=== PATIENT | female | born 2000 | race Two or more races ===

== ENCOUNTER 2020-03-22 09:52 | Outpatient (REF) | payer OTHER, SELFPAY | END 2020-03-22 09:53 | disposition home or self-care (01) | LOC: HO.LAB 09:52 | PROVIDERS: Visit Provider Internal Medicine | DX: Z20.828 Contact with and (suspected) exposure to other viral communicable diseases (principal) | CPT/HCPCS: C9803; U0003 ==

== ENCOUNTER 2020-03-31 12:33 | Emergency (ER) | payer OTHER, SELFPAY ==
[2020-03-31 13:22] VITALS: BP 108/72; PULSE 78; RESP 18; TEMP 35.9; O2SAT 100; BMI 24.1
--- NOTE | 2020-03-31 13:32 | ED.URI ---
HPI - URI/Sore Throat General Chief Complaint: Upper Respiratory Symptoms Stated Complaint: COVID SYMPTOMS Time Seen by Provider: 03/31/20 13:27 Source: patient Mode of arrival: ambulatory Limitations: no limitations History of Present Illness HPI Narrative: Runny nose, sore throat, headache, cough since yest erday. no fevers, chills, shortness of breath or chest pain MD elicited complaint: cough, sore throat and rhinorrhea Onset (ago): day(s) Consistency: intermittent Severity: mild Description of mucous: clear Able to tolerate fluids by mouth: Yes Exacerbating factors: nothing Relieving factors: nothing Associated symptoms: headache, rhinorrhea, sore throat and cough Treatments prior to arrival: none Related Data Allergies Allergy/AdvReac Type Severity Reaction Status Date / Time shrimp Allergy Unknown SWELLING Unverified 01/17/20 17:00 Review of Systems Review of Systems: Yes all other systems are reviewed and are negative Constitutional: Constitutional: Reports no additional constitutional complaints, Denies body ache(s), Denies chills, Denies fever(s), Reports headache(s) and Denies weakness Eyes: Eyes: Reports no additional eye complaints and Denies change in vision ENT: Reports system reviewed and no additional complaints, except as documented, Denies dizziness, Reports headache(s), Denies nasal congestion, Reports nasal discharge, Denies neck pain and Reports sore throat Cardiovascular: Cardiovascular: Reports no additional cardiovascular complaints, Denies chest pain, Denies leg edema and Denies dyspnea Respiratory: Respiratory: Reports no additional respiratory complaints, Reports cough and Denies dyspnea Gastrointestinal: Gastrointestinal: Reports no additional gastrointestinal complaints, Denies abdominal pain, Denies diarrhea, Denies nausea and Denies vomiting Genitourinary: Genitourinary: Reports no additional female genitourinary complaints and Denies urinary incontinence Musculoskeletal: Musculoskeletal: Reports no additional musculoskeletal complaints, Denies back pain, Denies arthralgias, Denies joint swelling, Denies neck pain, Denies numbness and Denies tingling Integumentary/Breasts: Skin/Breast: Reports system reviewed and no additional complaints, except as docu and Denies rash Neurologic: Denies Abnormal speech present, Denies dizziness, Reports headache(s), Denies numbness, Denies tingling and Denies weakness FORMERLY [facility], 1928–1983 Past Medical History Attestation statement: The following information was validated with the patient. Source: old records reviewed and nursing notes reviewed Medical History No known health problems Social History Social History Advance Directives: No Advance Directives Information Provided: No Physical Exam Vital Signs: Vital Signs: Last Vital Signs Temp 96.6 F L 03/31/20 13:22 Pulse 78 03/31/20 13:22 Resp 18 03/31/20 13:22 BP 108/72 03/31/20 13:22 Pulse Ox 100 03/31/20 13:22 Body Mass Index 24.1 Const: General: cooperative, healthy appearing, comfortable and no acute distress Orientation/consciousness: patient oriented x3 Limitations: no limitations HENMT: Head: Yes normal to inspection Ears: hearing grossly normal bilaterally General nose exam: Normal external nose present Face and sinus: Yes normal facial exam Mouth: Normal oral and palatal mucosa present Throat: Yes posterior oropharynx normal Eyes: General: appearance normal, both eyes and all related structures Pupils: Equal, round and reactive pupils present Neck: Neck: Yes normal visual inspection Chest: Chest palpation & inspection: normal inspection of the chest Resp: Effort & Inspection: normal respiratory effort Auscultation: clear to auscultation bilaterally Cardio: Rate: regular rate Rhythm: regular rhythm Peripheral pulses: Peripheral pulses 2+ throughout GI: Inspection: Yes normal to inspection Palpation (GI): Soft to palpation and nontender Auscultation: normal bowel sounds Back/Spine/Pelvis: Thoracic/Lumbar Spine: thoracic and lumbar spine normal to inspection Skin: General skin exam: no rashes or lesions noted Neuro: General: patient oriented x3, no focal motor deficits and normal sensation to monofilament Cranial nerves: Yes Equal, round and reactive pupils present Cognition (Neuro): normal cognition Speech: No Abnormal speech present Gait exam (Neuro): Normal gait present Motor exam (neuro): 5/5 motor strength present throughout Extrem: General: Yes normal to inspection Course Course Course Narrative: 19 year old female previously healthy here with flu-like symptoms x2 days well appearing, stable vital signs. Exam is benign. COVID testing sent. Reviewed worrisome signs and symptoms of when to return to the emergency department. Comfortable discharge home. MDM - URI/Sore Throat Medical Records Attestation: I reviewed the patient's medical records. Lab Data Attestation: I reviewed the patient's lab results. Labs: Lab Results 03/31/20 Range/Units 13:47 Coronavirus (PCR) NEGATIVE (Negative) Influenza Type A (PCR) NEGATIVE (Negative) Influenza Type B (PCR) NEGATIVE (Negative) RSV RNA Qual (PCR) NEGATIVE (Negative) Discharge Plan Discharge Clinical Impression: Viral infection Patient Disposition: Home, Self-Care Instructions: Viral Syndrome (ED) Additional Instructions: We have tested you today for COVID 19. Test results take 1-2 days and we will call you with the results negative or positive. Take tylenol or motrin if able as needed for pain or fever. Stay well hydrated with fluids like water, gatorade and/or powerade. Wash hands at home. If living with others try to self isolate if possible. If unable wear a mask around others in your home and wash hands frequently. If COVID test is positive you will need to self isolate for a total of 14 days from when your symptoms started. You may return to work sooner if testing is negative and all symptoms resolved >72 hours. You should return to the emergency department for severe shortness of breath, chest pain or fever which does not respond to both tylenol and motrin at home. Referrals: [facility] [Primary Care Provider] - 2 days Interventions: ED Discharge Assessment Last Done: 03/31/20 14:07 Discharge Date/Time: 03/31/20 14:08
[2020-03-31 14:44] LABS: Influenza A PCR NEGATIVE (Negative); Influenza B PCR NEGATIVE (Negative); Resp Syncy Virus RNA Qual PCR NEGATIVE (Negative); SARS COV2 PCR INHOUSE NEGATIVE (Negative)
== END 2020-03-31 14:08 | disposition home or self-care (01) ==
PROVIDERS: Nurse Practitioner Family; Emergency Provider Internal Medicine
DX: B34.9 Viral infection, unspecified (principal); R05 Cough; R09.89 Other specified symptoms and signs involving the circulatory and respiratory systems; J02.9 Acute pharyngitis, unspecified; Z20.828 Contact with and (suspected) exposure to other viral communicable diseases
CPT/HCPCS: 0241U; 99283

== ENCOUNTER → 2020-10-27 08:12 | Outpatient (BNVA) | payer OTHER, SELFPAY | PROVIDERS: Visit Provider Advanced Practice Midwife | DX: N92.6 Irregular menstruation, unspecified (principal); R10.2 Pelvic and perineal pain | CPT/HCPCS: 81003; 81025; 99202 ==

== ENCOUNTER 2020-10-29 15:06 | Emergency (ER) | payer OTHER, SELFPAY ==
[2020-10-29 16:18] VITALS: BP 112/70; PULSE 78; RESP 16; TEMP 36.6; O2SAT 100; BMI 23.8
--- NOTE | 2020-10-29 21:45 | ED_ITS ---
HPI - Nausea/Vomiting/Diarrhea General Chief complaint: Nausea/Vomiting/Diarrhea Stated complaint: Nausea/6 wks preg Time Seen by Provider: 10/29/20 21:27 Source: patient Mode of arrival: ambulatory History of Present Illness HPI Narrative: This is a 19-year-old female without significant past medical history who is at 6 weeks and 5 days determined by LMP, and presenting with lower abdominal discomfort that has been ongoing for 1 week and was evaluated on Tuesday by her manufacturing production technician. She is now presenting with continued discomfort as well as mild nausea with an isolated episode of vomiting but otherwise denies any fever, chills, diarrhea, vaginal bleeding, urinary pain / burning /frequency. Related Data Home Medications Medication Instructions Recorded Confirmed vitamin with calcium 1 tab PO DAILY 10/27/20 no.72-iron 27 mg-folic acid 1 mg tablet Previous Rx's Medication Instructions Recorded doxylamine succinate 25 mg tablet 12.5 mg PO BEDTIME 30 Days #15 tab 10/29/20 pyridoxine (vitamin B6) 25 mg 25 mg PO TID #90 tab 10/29/20 tablet Allergies Allergy/AdvReac Type Severity Reaction Status Date / Time shrimp Allergy Unknown SWELLING Verified 10/27/20 08:30 Review of Systems Review of Systems: Pertinent positives and negatives as stated in HPI 10 point review of systems is otherwise negative. PMFSH Past Medical History Source: nursing notes reviewed Medical History No known health problems Social History Social History Alcohol intake: never Patient Tobacco Use Status: Never used Tobacco Advance Directives: No Advance Directives Information Provided: Yes Patient : Yes Physical Exam Vital Signs: Vital Signs: Last Vital Signs Temp 98.5 F 10/29/20 22:36 Pulse 55 10/29/20 22:36 Resp 18 10/29/20 22:36 BP 93/71 10/29/20 22:36 Pulse Ox 100 10/29/20 22:36 Body Mass Index 23.8 VITAL SIGNS: Reviewed. GENERAL: Well developed, well nourished, in no acute distress. HEAD: Normocephalic/atraumatic EYES: PERRLA, EOMI EARS: Ext canals without abnormality NOSE: Nares patent bilateral OROPHARYNX: no oral lesions noted, posterior pharynx clear NECK: Supple, no adenopathy LUNGS: Normal breath sounds. No adventitious sounds or accessory muscle use. SpO2<100> CARDIOVASCULAR: Regular rate and rhythm without noted murmurs ABDOMEN: Soft, non-tender, non-distended with bowel sounds. MUSCULOSKELETAL: No tenderness, deformities, or effusions noted on gross inspection. EXTREMITIES: No cyanosis, clubbing or edema. SKIN: Inspection of the skin reveals no rashes, ulcerations, jaundice, pallor, or petechiae. NEUROLOGIC: Alert and oriented x 4. Strength and sensation to light touch were grossly intact x 4. Course Course Course Narrative: This is a 19-year-old female with history and clinical presentation most consistent with related nausea and vomiting and doubt any infectious etiology, however will rule out UTI. Otherwise, will treat with antiemetic and p.o. challenge. On re-evaluation patient states that she is feeling much better and she will be discharged as there is low clinical suspicion for ectopic or intra-abdominal pathologies. On review of all results there is no evidence of UTI nor is there presence of hematuria. MDM - Nausea/Vomiting/Diarrhea Lab Data Labs: Lab Results 10/29/20 10/29/20 Range/Units 22:17 22:17 Urine Color YELLOW Urine Appearance CLEAR Urine pH 6.5 (5.0-8.0) Ur Specific [place] 1.010 (1.005-1.025) Urine Protein NEG (NEG-TRACE) MG/DL Urine Glucose (UA) NEG (NEG) MG/DL Urine Ketones 5 (NEG) MG/DL Urine Blood NEG (NEG) Urine Nitrite NEG (NEG) Ur Leukocyte Esterase NEG (NEG) Urine Test POSITIVE H (NEGATIVE) Discharge Plan Discharge Clinical Impression: Nausea/vomiting in Patient Disposition: Home, Self-Care Instructions: Nausea and Vomiting in (ED) Additional Instructions: 1. continue taking vitamins as well as the vitamin B6 as prescribed. 2. increase fluid hydration especially with water. 3. Please follow-up with your doctor within the next 2-3 days for re- evaluation. Please return to the ER should you develop any worsening of your symptoms, fevers, chills, diarrhea, vaginal bleeding. Prescriptions: No Action Unisom (doxylamine) 25 mg tablet 12.5 mg PO BEDTIME 30 Days Qty: 15 RF: 1 pyridoxine (vitamin B6) 25 mg tablet 25 mg PO TID Qty: 90 RF: 3 Vitamin Plus Low Iron 27 mg iron- 1 mg tablet 1 tab PO DAILY RF: 0 Referrals: Physician,None [Primary Care Provider] - 2 days
[2020-10-29 22:24] LABS: Appearance Urine CLEAR; Color Urine YELLOW; Glucose Urine UA NEG (NEG); Leukocyte Esterase Urine NEG (NEG); Nitrite Urine NEG (NEG); PH 6.5 (5.0-8.0); Urine Blood NEG (NEG); Urine Ketones 5 MG/DL (NEG); Urine Protein NEG (NEG-TRACE)
[2020-10-29 22:25] LABS: UPreg QC Valid YES; Urine Pregnancy POSITIVE (NEGATIVE)
[2020-10-29 22:36] VITALS: BP 93/71; PULSE 55; RESP 18; TEMP 36.9; O2SAT 100
== END 2020-10-29 23:55 | disposition home or self-care (01) ==
PROVIDERS: Emergency Provider Student in an Organized Health Care Education/Training Program
DX: O21.9 Vomiting of pregnancy, unspecified (principal); Z3A.01 Less than 8 weeks gestation of pregnancy
CPT/HCPCS: 81003; 81025; 96374; 99283; 99284

== ENCOUNTER 2020-10-30 03:10 | Emergency (ER) | payer OTHER, SELFPAY ==
--- NOTE | ~2020-10-30 | US_ITS ---
EXAMINATION: US OBSTETRICAL < 14 WEEKS CLINICAL INFORMATION: Severe cramping Last menstrual period: 09/12/2020. Gestational age by LMP: 6 weeks 6 days, GOLD 06/19/2021 COMPARISON: None. TECHNIQUE: Real-time ultrasound was performed transabdominally. FINDINGS: The uterus is anteverted in position. Within the endometrial cavity is a well formed gestation sac. A yolk sac is present with inner diameter measuring 2 mm, normal. The crown-rump length of 0.54 cm corresponds to a menstrual age of 6 weeks 3 days. This yields an estimated date of delivery of 06/22/2021. The heart beat is regular and normal rate measuring 116 beats per minute. The right ovary measures 4.1 x 2.6 x 2.3 cm, and the left ovary measures 3.6 x 2.2 x 1.9 cm. No adnexal abnormalities are identified. No free fluid in the pelvis. OTHER SIGNIFICANT FINDINGS: None US/US OB pelvic and transvaginal IMPRESSION: Single viable intrauterine estimated to be 6 weeks 3 days menstrual age. Estimated date of delivery is 06/22/2021.
[2020-10-30 03:26] VITALS: RESP 18; BMI 23.4
[2020-10-30] MEDS: Acetaminophen 325 MG TABLET 975 MG PO (03:40)
[2020-10-30 03:41] VITALS: BP 106/66; PULSE 89; RESP 18; TEMP 37; O2SAT 99
--- NOTE | 2020-10-30 04:05 | ED.GENADULT ---
HPI - General Adult General Chief complaint: General Medical Stated complaint: severe cramping (6 wks ) Time Seen by Provider: 10/30/20 04:05 Source: patient Mode of arrival: ambulatory History of Present Illness HPI narrative: 19-year-old female who presents with complaints of intermittent severe cramping, and re-presented after being evaluated earlier in the afternoon as well as being seen by her cytotechnologist/cytology supervisor a few days ago. Patient denies taking any Tylenol and denies vaginal bleeding. Related Data Home Medications Medication Instructions Recorded Confirmed vitamin with calcium 1 tab PO DAILY 10/27/20 no.72-iron 27 mg-folic acid 1 mg tablet Previous Rx's Medication Instructions Recorded doxylamine succinate 25 mg tablet 12.5 mg PO BEDTIME 30 Days #15 tab 10/29/20 pyridoxine (vitamin B6) 25 mg 25 mg PO TID #90 tab 10/29/20 tablet Allergies Allergy/AdvReac Type Severity Reaction Status Date / Time shrimp Allergy Unknown SWELLING Verified 10/27/20 08:30 Review of Systems Review of Systems: Pertinent positives and negatives as stated in HPI 10 point review of systems it was otherwise negative. [facility] Past Medical History Source: nursing notes reviewed Medical History No known health problems Social History Social History Alcohol intake: current Alcohol intake frequency: a few times a month Patient Tobacco Use Status: Never used Tobacco Use of substances other than those prescribed or required for medical reasons: No Advance Directives: No Advance Directives Information Provided: No Patient : Yes Physical Exam Vital Signs: Vital Signs: Last Vital Signs Temp 98.6 F 10/30/20 03:41 Pulse 89 10/30/20 03:41 Resp 18 10/30/20 03:41 BP 106/66 10/30/20 03:41 Pulse Ox 99 10/30/20 03:41 Body Mass Index 23.4 VITAL SIGNS: Reviewed. GENERAL: Well developed, well nourished, in no acute distress. HEAD: Normocephalic/atraumatic EYES: PERRLA, EOMI OROPHARYNX: no oral lesions noted, posterior pharynx clear NECK: Supple, no adenopathy LUNGS: Normal breath sounds. No adventitious sounds or accessory muscle use. SpO2<99> CARDIOVASCULAR: Regular rate and rhythm without noted murmurs ABDOMEN: Soft, non-tender on examination of all 4 quadrants, non-distended with bowel sounds. SKIN: Inspection of the skin reveals no rashes NEUROLOGIC: Alert and oriented x 4. Strength and sensation to light touch were grossly intact x 4. Course Course Course Narrative: This is a 19-year-old female with history and clinical presentation consistent with related symptoms, but will rule out ectopic. Review of ultrasound findings negative for ectopic. Patient given results and on re-evaluation she states it is feeling better. Discharge Plan Discharge Clinical Impression: Patient Disposition: Home, Self-Care Instructions: Abdominal Pain in (ED) Additional Instructions: Resume vitamins as well as the medication you have been prescribed for related nausea and vomiting. Follow-up with your primary care provider in the next 1-2 days for re-evaluation. Prescriptions: No Action Unisom (doxylamine) 25 mg tablet 12.5 mg PO BEDTIME 30 Days Qty: 15 RF: 1 pyridoxine (vitamin B6) 25 mg tablet 25 mg PO TID Qty: 90 RF: 3 Vitamin Plus Low Iron 27 mg iron- 1 mg tablet 1 tab PO DAILY RF: 0 Referrals: Eduarda Reyes MD [Primary Care Provider] - 2 days
== END 2020-10-30 05:21 | disposition home or self-care (01) ==
PROVIDERS: Emergency Provider Student in an Organized Health Care Education/Training Program; PCP Pediatrics
DX: O26.891 Other specified pregnancy related conditions, first trimester (principal); R10.9 Unspecified abdominal pain; Z3A.01 Less than 8 weeks gestation of pregnancy
CPT/HCPCS: 76801; 76817; 99284

== ENCOUNTER 2020-11-04 15:45 | Emergency (ER) | payer OTHER, SELFPAY | END 2020-11-04 18:03 | disposition left against medical advice (07) | LOC: HO.ED 18:02 | PROVIDERS: Emergency Provider Emergency Medicine | DX: R63.4 Abnormal weight loss (principal) ==

== ENCOUNTER 2020-11-12 12:57 | Outpatient (REF) | payer OTHER, SELFPAY ==
--- NOTE | ~2020-11-12 | US_ITS ---
EXAMINATION: US OBSTETRICAL ULTRASOUND CLINICAL INFORMATION: Irregular menstruation. On short dates. COMPARISON: None. LMP: 09/12/2020. Gestational age by maternal dates is 8 weeks 5 days. Estimated date of delivery by maternal dates is 06/19/2021. TECHNIQUE: Transabdominal first trimester OB ultrasound FINDINGS: There is a single intrauterine gestational sac with visible yolk sac, embryo/fetus, and cardiac activity. There is no significant subchorionic hemorrhage or hematoma. HR: 161 beats per minute. CRL (crown rump length): 1.7 cm (8 weeks 1 day +/- 4 days). GOLD (estimated date of delivery): 06/22/2021 +/- 4 days. MATERNAL ADNEXA: The right maternal ovary measures 2.4 x 1.8 x 1.8 cm. The left maternal ovary measures 2.4 x 1.6 x 1.7 cm. There is no significant maternal adnexal mass. No maternal pelvic ascites. US/US OB <= 14 weeks fetus IMPRESSION: 1. Single intrauterine gestation with ultrasound gestational age of 8 weeks 1 day +/- 4 days. 2. Estimated date of delivery is 06/23/2021 +/- 4 days. 3. No maternal adnexal mass or pelvic ascites.
== END 2020-11-12 12:58 | disposition home or self-care (01) ==
LOC: HO.US 12:57
PROVIDERS: Visit Provider Advanced Practice Midwife
DX: R10.2 Pelvic and perineal pain (principal); N92.6 Irregular menstruation, unspecified
CPT/HCPCS: 76801

== ENCOUNTER 2020-12-10 13:01 | Outpatient (REF) | payer OTHER, SELFPAY ==
[2020-12-11 04:19] LABS: CT PCR NOT DETECTED (Not Detect.); NG PCR NOT DETECTED (Not Detect.)
[2020-12-11 09:24] LABS: BV Int Neg Control Negative (Negative); BV Int Pos Control Positive (Positive)
== END 2020-12-10 13:02 | disposition home or self-care (01) ==
LOC: HO.LAB 13:01
PROVIDERS: Visit Provider Advanced Practice Midwife
DX: O99.891 Other specified diseases and conditions complicating pregnancy (principal); N89.8 Other specified noninflammatory disorders of vagina; Z3A.00 Weeks of gestation of pregnancy not specified
CPT/HCPCS: 81003; 87480; 87491; 87510; 87591; 87660; 99212

== ENCOUNTER 2020-12-12 10:35 | Outpatient (REF) | payer OTHER, SELFPAY ==
--- NOTE | ~2020-12-12 | US_ITS ---
EXAMINATION: OBSTETRICAL ULTRASOUND, FIRST TRIMESTER HISTORY: 19-year-old at 13.0 weeks of gestation NT screening COMPARISON: 11/12/2020 TECHNIQUE: Real time transabdominal imaging with color and M-mode Doppler. FINDINGS: A single, live IUP CRL of 65.9 mm c/w 13.0wks is noted. Heart Rate: 150 beats per minute. Normal yolk sac seen. NT was 1.7.mm. NB Present The embryo appears sonographically wnl for this GA. Both maternal ovaries are seen and appear normal. GESTATIONAL AGE: 1. Established GA: 13.0 wks 2. GA from [facility]: 13.0 wks ESTIMATED DATE OF DELIVERY: 1. Established GOLD: 06/19/2021 2. GOLD from [facility]: 06/19/2021 US/US OB 1T nuc measure IMPRESSION: 1. A single live IUP 2. Size equals dates 3. NT of 1.7 mm MFM Consultation: I reviewed the ultrasound findings along with significance of NT measurement. The NT of less than 3mm is generally reassuring. However, the sensitivity for T21 detection is only 60%. I reviewed the availability of serum aneuploidy screening which includes cell-free DNA and placental protein based tests. I discussed the sensitivity, false-positive rate, and other limitations associated with each test. I also reviewed the availability of invasive diagnostic tests that are associated small but definite risk of miscarriage. We also reviewed the differences between screening tests and diagnostic tests. After our discussion, she opted for the First trimester screening that is based on cell-free DNA or non-invasive testing (NIPT). A follow up at 18 weeks for survey has been scheduled. Thank you very much for this referral. Total time 30 minutes. The time spent was devoted to counseling the patient about the disease and diagnosis, coordinating care including reviewing her records, pertinent lab data and studies, as well as discussing diagnostic evaluation and workup, plan therapeutic interventions and future disposition of care. This includes any additional research needed to obtain further information in formulating the plan of care of this patient. This note was generated with a voice recognition program. Please excuse any errors which may have been overlooked during my review of this note. Sometimes these errors may affect the content or meaning of a given sentence.
== END 2020-12-12 10:36 | disposition home or self-care (01) ==
LOC: HO.US 10:35
PROVIDERS: Visit Provider Advanced Practice Midwife
DX: Z36.82 Encounter for antenatal screening for nuchal translucency (principal); Z3A.12 12 weeks gestation of pregnancy
CPT/HCPCS: 76813

== ENCOUNTER → 2020-12-29 13:36 | Outpatient (BNVA) | payer OTHER, SELFPAY | PROVIDERS: Visit Provider Advanced Practice Midwife | DX: Z34.02 Encounter for supervision of normal first pregnancy, second trimester (principal); Z3A.14 14 weeks gestation of pregnancy | CPT/HCPCS: 99212 ==

== ENCOUNTER 2021-01-09 14:00 | Outpatient (REF) | payer OTHER, SELFPAY ==
--- NOTE | ~2021-01-09 | US_ITS ---
EXAMINATION: US OBSTETRICAL CLINICAL INFORMATION: 20-year-old at 17 weeks of gestation Screening for anomalies COMPARISON: 12/12/2020 TECHNIQUE: Real-time transabdominal ultrasound was performed using C1-5 megahertz transducer. FINDINGS: A single, active, fetus is seen in vertex presentation. The placenta is anterior without previa, and the amniotic fluid volume is wnl. MEASUREMENTS: 1. Biparietal Diameter: 3.4 cm; 16.4 wks 2. Occipital Frontal Diameter: 4.6 cm 3. Head Circumference: 13.1 cm; 16.6 wks 4. Abdominal Circumference: 10.9 cm; 16.6 wks 5. Femur Length: 2.0 cm; 16.1 wks 6. Humerus Length: 2.1 cm; 16.3 wks 7. Tibia Length: 1.8 cm; 16.1 wks 8. Ulna Length: 2.0 cm; 17.0 wks 9. Lateral ventricle: 0.72 cm 10. Cerebellum: 1.61 cm; 17.2 wks 11. Cisterna Magna: 0.33 cm 12. Nuchal Fold: 2.4 mm 13. Heart Rate: 142 beats per minute Rt ovary: normal Lt ovary: normal Cervical length 3.6 cm on T/A. GESTATIONAL AGE: 1. Established GA: 17.0 wks 2. GA from [facility]: 16.5 wks ESTIMATED DATE OF DELIVERY: 1. Established GOLD: 06/19/2021 2. GOLD from [facility]: 06/21/2021 ANATOMY: The anatomic survey was the spleen limited due to early gestational age. The views of the three-vessel trachea, bilateral kidneys and spine were suboptimal. The visualized anatomy includes but not limited to: 1. Cranium: Normal 2. Intracranial anatomy: cavum septum pellucidi, lateral ventricles, choroid plexus, cerebellum, posterior fossa, third and fourth ventricles. 3. face: orbits, lip/palate, profile, nasal bone 4. Heart: Suboptimal 3 vessel trachea view. 5. Diaphragm: Normal 6. Abdominal wall: Normal 7. Cord Insertion: Normal 8. Spine: Suboptimal 9. Stomach: Normal size and shape 10. Right Kidney: Limited 11. Left Kidney: Limited 12. 3 vessel cord: Normal 13. Upper extremity: Open hands, fifth digit. 14. Lower extremity: Tibia, fibula, bilateral feet. 15. Bladder: Normal 16. Genitalia: Female, patient aware US/US OB /maternal detail IMPRESSION: 1. Single, living, intrauterine with appropriate biometry. 2. Limited anatomy due to early gestational age. However no abnormalities were seen in visualized anatomy. DISCUSSION: I reviewed today's ultrasound findings. We discussed the limitations of ultrasound in diagnosing aneuploidy and other congenital abnormalities. I reviewed the differences between screening test and diagnostic test. Amniocentesis was discussed and declined. She was informed that the baseline incidence of congenital abnormalities is approximately 3-5%. Not all these conditions are diagnosable in utero. RECOMMENDATIONS: 1. Follow-up in 3 weeks (scheduled) Thank you for allowing me to participate in her care. Total time 20 minutes. The time spent was devoted to counseling the patient about the disease and diagnosis, coordinating care including reviewing her records, pertinent lab data and studies, as well as discussing diagnostic evaluation and workup, plan therapeutic interventions and future disposition of care. This includes any additional research needed to obtain further information in formulating the plan of care of this patient. This note was generated with a voice recognition program. Please excuse any errors which may have been overlooked during my review of this note. Sometimes these errors may affect the content or meaning of a given sentence.
== END 2021-01-09 14:01 | disposition home or self-care (01) ==
LOC: HO.US 14:00
PROVIDERS: Visit Provider Advanced Practice Midwife
DX: Z34.92 Encounter for supervision of normal pregnancy, unspecified, second trimester (principal); Z36.3 Encounter for antenatal screening for malformations
CPT/HCPCS: 76811

== ENCOUNTER 2021-01-23 09:14 | Outpatient (REF) | payer OTHER, SELFPAY ==
[2021-01-23 16:16] LABS: CT PCR NOT DETECTED (Not Detect.); NG PCR NOT DETECTED (Not Detect.)
== END 2021-01-23 09:15 | disposition home or self-care (01) ==
LOC: HO.LAB 09:14
PROVIDERS: Visit Provider Advanced Practice Midwife
DX: Z34.92 Encounter for supervision of normal pregnancy, unspecified, second trimester (principal); Z3A.18 18 weeks gestation of pregnancy
CPT/HCPCS: 87491; 87591; 99212

== ENCOUNTER 2021-01-30 11:27 | Outpatient (REF) | payer OTHER, SELFPAY ==
--- NOTE | ~2021-01-30 | US_ITS ---
EXAMINATION: OBSTETRICAL ULTRASOUND, Follow up HISTORY: A 20-year-old at the 20.0 weeks of gestation Incomplete survey COMPARISON: 01/09/2021 TECHNIQUE: Real time transabdominal imaging with color and M-mode Doppler. PRESENTATION: Vertex PLACENTA LOCATION: Anterior without previa AMNIOTIC FLUID: Within normal limits MEASUREMENTS: 1. Biparietal Diameter: 4.7 cm; 20.2 wks 2. Head Circumference: 17.3 cm; 19.6 wks 3. Abdominal Circumference: 15.1 cm; 20.3 wks 4. Femur Length: 3.1 cm; 19.4 wks 5. Heart Rate: 144 beats per minute WEIGHT: Estimated weight is 320 grams (0 lbs 11 oz) -- 40 %. Normal views of lateral cerebral ventricle, profile, nose/lips, 4ch view, 3 vessel trachea, bilateral kidneys and spine. GESTATIONAL AGE: 1. Established GA: 20.0 wks 2. GA from [facility]: 20.1 wks ESTIMATED DATE OF DELIVERY: 1. Established GOLD: 06/19/2021 2. GOLD from [facility]: 06/18/2021 US/US OB follow up IMPRESSION: 1. A single fetus with appropriate interval growth. 2. Previously limited views of the anatomy were seen as listed above. No abnormalities were noted in visualized anatomy. 3. This completes the survey. I reviewed the limitations of ultrasound in diagnosing aneuploidy and other congenital abnormalities. Amniocentesis was again reviewed and she declined. She was informed that the baseline instance of congenital abnormalities and defects in the general population is approximately 3-5%. Not all these conditions are diagnosable in utero. RECOMMENDATIONS: 1. f/u PRN Thank you very much for this referral. This note was generated with a voice recognition program. Please excuse any errors which may have been overlooked during my review of this note. Sometimes these errors may affect the content or meaning of a given sentence.
== END 2021-01-30 11:28 | disposition home or self-care (01) ==
LOC: HO.US 11:27
PROVIDERS: Visit Provider Advanced Practice Midwife
DX: Z36.3 Encounter for antenatal screening for malformations (principal)
CPT/HCPCS: 76816

== ENCOUNTER → 2021-02-24 11:41 | Outpatient (BNVA) | payer OTHER, SELFPAY | PROVIDERS: Visit Provider Advanced Practice Midwife | DX: O99.891 Other specified diseases and conditions complicating pregnancy (principal); M54.50 Low back pain, unspecified; Z71.3 Dietary counseling and surveillance; Z3A.23 23 weeks gestation of pregnancy | CPT/HCPCS: 81003; 99212 ==

== ENCOUNTER 2021-03-12 09:08 | Outpatient (REF) | payer OTHER, SELFPAY ==
[2021-03-12 10:13] LABS: Hematocrit 34.7 % (37.0-47.0); Hemoglobin 11.4 g/dl (12.0-16.0); Mean Corpuscular HGB Conc 32.9 g/dl (31.0-35.0); Mean Corpuscular Hemoglobin 30.2 pg (27.0-33.0); Mean Platelet Volume 9.5 fL (9.4-12.3); Platelet Count 233 X10*3/uL (160-400); Red Blood Count 3.77 X10*6/uL (4.20-5.50); Red Cell Distribution Width 12.3 % (11.0-16.0); White Blood Count 12.6 X10*3/uL (4.8-10.8)
[2021-03-12 10:54] LABS: Amphetamine Screen Urine Not Detected (Not Detect); Barbiturates, Urine Not Detected (Not Detect); Benzodiazepines Screen Urine Not Detected (Not Detect); Cannabinoid Screen Urine Not Detected (Not Detect); Cocaine Screen Urine Not Detected (Not Detect); Fentanyl, urine Not Detected (Not Detect); Opiate Screen Urine Not Detected (Not Detect); Phencyclidine Screen Urine Not Detected (Not Detect)
[2021-03-12 11:57] LABS: Glucose 1 Hour PP 50gm Dose 124 mg/dL (60-140)
[2021-03-13 08:15] LABS: HIV AB/AG Nonreactive (Nonreactive); HIV Num 1 0.06 S/CO (0.00-0.99); Hepatitis B Surface Antigen Negative (Negative); ~HepC Num1 0.05 S/CO (0.00-0.79); ~Hepatitis C Antibody Nonreactive (Nonreactive)
[2021-03-13 08:38] LABS: Syphilis Screen Nonreactive (Nonreactive)
[2021-03-16 23:17] LABS: Rubella IgG Antibody 1.46 Index
== END 2021-03-12 09:09 | disposition home or self-care (01) ==
LOC: HO.LAB 09:08
PROVIDERS: Visit Provider Advanced Practice Midwife
DX: Z32.01 Encounter for pregnancy test, result positive (principal)
CPT/HCPCS: 80307; 85027; 86762; 86780; 86787; 86803; 86850; 86900; 86901; 87086; 87340; 87389

== ENCOUNTER → 2021-03-18 10:55 | Outpatient (BNVA) | payer OTHER, SELFPAY | PROVIDERS: Visit Provider Advanced Practice Midwife | DX: O36.5920 Maternal care for other known or suspected poor fetal growth, second trimester, not applicable or unspecified (principal); Z3A.26 26 weeks gestation of pregnancy | CPT/HCPCS: 99212 ==

== ENCOUNTER 2021-03-30 11:27 | Outpatient (REF) | payer OTHER, SELFPAY ==
--- NOTE | ~2021-03-30 | US_ITS ---
EXAMINATION: US OBSTETRICAL FOLLOWUP WITH BIOPHYSICAL PROFILE CLINICAL INFORMATION: Poor growth. COMPARISON: Ultrasound OB 01/30/2021 TECHNIQUE: Real-time transabdominal imaging with color and M-mode Doppler. POSITION: Cephalic. PLACENTA: Anterior grade 2. AMNIOTIC FLUID INDEX: Right upper quadrant SDP 5.6 cm. biometric measurements are as follows: Biparietal Diameter: 7.07 cm (28 weeks 3 days) Occipital Frontal Diameter: 8.84 cm (27 weeks and 1 day) Head Circumference: 26.12 cm (28 weeks and 3 days) Abdominal Circumference: 25.16 cm (29 weeks 3 days) Femur Length: 5.08 cm (27 weeks and 2 days) The ultrasound gestational age measures 28 weeks and 3 days. It corresponds to 28 weeks 3 days based on LMP of 09/12/2020. The standard deviation for the above measurements is +/- 3 weeks. On limited anatomy, there is visualization of kidneys, bladder, stomach, and a four-chamber heart which appears unremarkable. ESTIMATED WEIGHT: The EFW is 2 pounds and 12 oz/1254 g. This corresponds to 43rd percentile. HR: 153 bpm. There is good movement. US/US OB follow up IMPRESSION: 1. Single intrauterine gestation in cephalic position with anterior grade 2 placenta. 2. EFW: 1254 g corresponding to 43rd percentile. 3. JESSIKA: SDP 5.6 cm. 4. There is normal growth compared to last ultrasound exam 01/30/2021.
== END 2021-03-30 11:28 | disposition home or self-care (01) ==
LOC: HO.HMGCX 11:27
PROVIDERS: Visit Provider Advanced Practice Midwife
DX: O36.5920 Maternal care for other known or suspected poor fetal growth, second trimester, not applicable or unspecified (principal)
CPT/HCPCS: 76816

== ENCOUNTER 2021-04-03 | Outpatient (REF) | payer OTHER, SELFPAY | END 2021-04-03 00:01 | disposition home or self-care (01) | LOC: CF | PROVIDERS: Visit Provider Advanced Practice Midwife | DX: O99.891 Other specified diseases and conditions complicating pregnancy (principal); M54.9 Dorsalgia, unspecified; Z3A.28 28 weeks gestation of pregnancy; Z91.013 Allergy to seafood; Z67.40 Type O blood, Rh positive | CPT/HCPCS: 81003; 99212 ==

== ENCOUNTER → 2021-04-20 11:15 | Outpatient (BNVA) | payer OTHER, SELFPAY | PROVIDERS: PCP Advanced Practice Midwife; Visit Provider Advanced Practice Midwife | DX: Z34.03 Encounter for supervision of normal first pregnancy, third trimester (principal); Z3A.30 30 weeks gestation of pregnancy | CPT/HCPCS: 99212 ==

== ENCOUNTER → 2021-05-14 08:28 | Outpatient (BNVA) | payer OTHER, SELFPAY | PROVIDERS: PCP Advanced Practice Midwife; Visit Provider Advanced Practice Midwife | DX: Z34.03 Encounter for supervision of normal first pregnancy, third trimester (principal); Z23 Encounter for immunization; Z3A.34 34 weeks gestation of pregnancy | CPT/HCPCS: 90471; 90715; 99212 ==

== ENCOUNTER 2021-05-28 08:37 | Outpatient (REF) | payer OTHER, SELFPAY | END 2021-05-28 08:38 | disposition home or self-care (01) | LOC: HO.LAB 08:37 | PROVIDERS: PCP Advanced Practice Midwife; Visit Provider Obstetrics & Gynecology | DX: Z34.93 Encounter for supervision of normal pregnancy, unspecified, third trimester (principal); Z3A.36 36 weeks gestation of pregnancy | CPT/HCPCS: 87081; 87147; 99212 ==

== ENCOUNTER 2021-06-05 09:01 | Outpatient (REF) | payer OTHER, SELFPAY ==
[2021-06-05 15:39] LABS: CT PCR NOT DETECTED (Not Detect.); NG PCR NOT DETECTED (Not Detect.)
== END 2021-06-05 09:02 | disposition home or self-care (01) ==
LOC: HO.LAB 09:01
PROVIDERS: PCP Advanced Practice Midwife; Visit Provider Advanced Practice Midwife
DX: O36.5930 Maternal care for other known or suspected poor fetal growth, third trimester, not applicable or unspecified (principal); Z3A.37 37 weeks gestation of pregnancy
CPT/HCPCS: 87491; 87591; 99212

== ENCOUNTER 2021-06-12 10:55 | Outpatient (REF) | payer OTHER, SELFPAY ==
--- NOTE | ~2021-06-12 | US_ITS ---
EXAMINATION: OBSTETRICAL ULTRASOUND, Follow up HISTORY: 20-year-old at 39.0 weeks of gestation Suspected for growth COMPARISON: 03/30/2021 TECHNIQUE: Real time transabdominal imaging with color and M-mode Doppler. PRESENTATION: Vertex PLACENTA LOCATION: Anterior without previa AMNIOTIC FLUID: JESSIKA 10.2 cm MEASUREMENTS: 1. Biparietal Diameter: 8.4 cm; 34.0 wks 2. Head Circumference: 32.6 cm; 37.0 wks 3. Abdominal Circumference: 33.3 cm; 37.2 wks 4. Femur Length: 7.3 cm; 37.1 wks 5. Heart Rate: 139 beats per minute WEIGHT: EFW: 3022 grams (6 lbs 11 oz) -- 17 %. BIOPHYSICAL PROFILE: Motion: 2 Tone: 2 Breathin Amniotic Fluid: 2 Total score: 8/8 UA Doppler: S/D2.5 GESTATIONAL AGE: 1. Established GA: 39.0 wks 2. GA from A: 36.3 wks ESTIMATED DATE OF DELIVERY: 1. Established GOLD: 06/19/2021 2. GOLD from AUA: 07/07/2021 US/US OB velocimetry umbilical ar IMPRESSION: 1. A single active fetus is in vertex presentation 2. Size equals dates, EFW corresponds to 17th percentile 3. Reassuring biophysical profile with normal JESSIKA 4. Normal SD ratio in the umbilical artery I reviewed today's findings and the limitations of ultrasound and estimating weights. Her first the child's weight was approximately 6 pounds. Thank you very much for this referral. This note was generated with a voice recognition program. Please excuse any errors which may have been overlooked during my review of this note. Sometimes these errors may affect the content or meaning of a given sentence.
--- NOTE | ~2021-06-12 | US_ITS ---
EXAMINATION: OBSTETRICAL ULTRASOUND, Follow up HISTORY: 20-year-old at 39.0 weeks of gestation Suspected for growth COMPARISON: 03/30/2021 TECHNIQUE: Real time transabdominal imaging with color and M-mode Doppler. PRESENTATION: Vertex PLACENTA LOCATION: Anterior without previa AMNIOTIC FLUID: JESSIKA 10.2 cm MEASUREMENTS: 1. Biparietal Diameter: 8.4 cm; 34.0 wks 2. Head Circumference: 32.6 cm; 37.0 wks 3. Abdominal Circumference: 33.3 cm; 37.2 wks 4. Femur Length: 7.3 cm; 37.1 wks 5. Heart Rate: 139 beats per minute WEIGHT: EFW: 3022 grams (6 lbs 11 oz) -- 17 %. BIOPHYSICAL PROFILE: Motion: 2 Tone: 2 Breathin Amniotic Fluid: 2 Total score: 8/8 UA Doppler: S/D2.5 GESTATIONAL AGE: 1. Established GA: 39.0 wks 2. GA from AUA: 36.3 wks ESTIMATED DATE OF DELIVERY: 1. Established GOLD: 06/19/2021 2. GOLD from AUA: 07/07/2021 US/US OB follow up IMPRESSION: 1. A single active fetus is in vertex presentation 2. Size equals dates, EFW corresponds to 17th percentile 3. Reassuring biophysical profile with normal JESSIKA 4. Normal SD ratio in the umbilical artery I reviewed today's findings and the limitations of ultrasound and estimating weights. Her first the child's weight was approximately 6 pounds. Thank you very much for this referral. This note was generated with a voice recognition program. Please excuse any errors which may have been overlooked during my review of this note. Sometimes these errors may affect the content or meaning of a given sentence.
== END 2021-06-12 10:56 | disposition home or self-care (01) ==
LOC: HO.US 10:55
PROVIDERS: Visit Provider Advanced Practice Midwife
DX: O36.5990 Maternal care for other known or suspected poor fetal growth, unspecified trimester, not applicable or unspecified (principal); O26.893 Other specified pregnancy related conditions, third trimester; M54.30 Sciatica, unspecified side; N20.0 Calculus of kidney
CPT/HCPCS: 76816; 76820; 99212

== ENCOUNTER → 2021-08-20 12:59 | Outpatient (BNVA) | payer OTHER, SELFPAY | PROVIDERS: Visit Provider Advanced Practice Midwife | DX: Z39.2 Encounter for routine postpartum follow-up (principal); R20.0 Anesthesia of skin; M54.9 Dorsalgia, unspecified | CPT/HCPCS: 99212 ==

== ENCOUNTER → 2021-08-28 14:36 | Outpatient (BNVA) | payer OTHER, SELFPAY | PROVIDERS: Visit Provider Advanced Practice Midwife | DX: Z30.42 Encounter for surveillance of injectable contraceptive (principal) | CPT/HCPCS: 96372; 99211 ==

== ENCOUNTER 2022-01-21 09:59 | Outpatient (REF) | payer OTHER, SELFPAY ==
[2022-01-21 12:18] LABS: Hematocrit 42.3 % (37.0-47.0); Hemoglobin 13.7 g/dl (12.0-16.0); Mean Corpuscular HGB Conc 32.4 g/dl (31.0-35.0); Mean Corpuscular Hemoglobin 28.2 pg (27.0-33.0); Mean Platelet Volume 9.7 fL (9.4-12.3); Platelet Count 270 X10*3/uL (160-400); Red Blood Count 4.86 X10*6/uL (4.20-5.50); Red Cell Distribution Width 11.9 % (11.0-16.0); White Blood Count 6.4 X10*3/uL (4.8-10.8)
[2022-01-21 13:17] LABS: Thyroid Stimulating Hormone 0.96 uIU/mL (0.32-4.0)
== END 2022-01-21 10:00 | disposition home or self-care (01) ==
LOC: HO.LAB 09:59
PROVIDERS: PCP Internal Medicine; Visit Provider Advanced Practice Midwife
DX: N92.1 Excessive and frequent menstruation with irregular cycle (principal)
CPT/HCPCS: 36415; 84443; 85027; 99212

== ENCOUNTER 2022-01-25 10:52 | Outpatient (REF) | payer OTHER, SELFPAY ==
[2022-01-28 15:35] LABS: TS Negative Control Passed; TS Panel A 0; TS Panel B 0; TS Positive Control Passed; TSpotTB Negative (Negative)
== END 2022-01-25 10:53 | disposition home or self-care (01) ==
LOC: HO.LAB 10:52
PROVIDERS: Absent Provider Internal Medicine; PCP Internal Medicine; Visit Provider Advanced Practice Midwife
DX: Z30.42 Encounter for surveillance of injectable contraceptive (principal)
CPT/HCPCS: 36415; 86481; 96372; 99211

== ENCOUNTER 2022-02-05 13:59 | Outpatient (REF) | payer OTHER, SELFPAY ==
[2022-02-05 14:15] LABS: MANUAL DIFF FLAG NO
[2022-02-05 14:39] LABS: Basophils Percent Auto 0.4 % (0-2); Eosinophils Absolute Auto 0.2 X10*3/uL (0.0-0.4); Eosinophils Percent Auto 2.2 % (0-4); Hemoglobin 14.1 g/dl (12.0-16.0); Imm Gran Abs Auto 0.01 X10*3/uL (0.00-0.03); Imm Gran Pct Auto 0.1 % (0.0-0.4); Lymphocytes Percent Auto 37.6 % (20-40); Mean Corpuscular HGB Conc 32.8 g/dl (31.0-35.0); Mean Corpuscular Hemoglobin 28.8 pg (27.0-33.0); Mean Corpuscular Volume 87.9 fL (80.0-98.0); Mean Platelet Volume 9.5 fL (9.4-12.3); Monocytes Absolute Auto 0.5 X10*3/uL (0.1-1.2); Monocytes Percent Auto 6.7 % (2-11); Neutrophils Absolute Auto 4.3 x10*3/uL (2.0-8.3); Platelet Count 295 X10*3/uL (160-400); Red Blood Count 4.89 X10*6/uL (4.20-5.50); Red Cell Distribution Width 12.1 % (11.0-16.0); White Blood Count 8.1 X10*3/uL (4.8-10.8)
[2022-02-05 14:45] LABS: INTERNATIONAL NORM RATIO 1.5 (0.9-1.1); Prothrombin Time 16.9 SEC (10.0-13.1)
[2022-02-05 15:04] LABS: Alanine Aminotransferase 15 U/L (0-31); Albumin Level 4.6 g/dL (3.5-5.0); Alkaline Phosphatase 98 U/L (39-117); Anion Gap 14 (12-20); Aspartate Amino Transferase 18 U/L (5-31); Blood Urea Nitrogen 8 mg/dL (9-16); Calcium 9.3 mg/dL (8.4-10.2); Carbon Dioxide 22 mmol/L (22-29); Chloride 106 mmol/L (96-108); Estimated Glomerular Filt Rate > 60; Glucose Random 85 mg/dL (60-115); Sodium 138 mmol/L (135-145); Total Protein 7.5 g/dL (6.5-8.0)
[2022-02-05 15:10] LABS: HCG Quantitative < 2 mIU/mL
[2022-02-08 05:06] LABS: HIV AB/AG Nonreactive (Nonreactive)
== END 2022-02-05 14:00 | disposition home or self-care (01) ==
LOC: HO.LAB 13:59
PROVIDERS: PCP Internal Medicine; Visit Provider Internal Medicine
DX: Z00.00 Encounter for general adult medical examination without abnormal findings (principal); Z11.4 Encounter for screening for human immunodeficiency virus [HIV]; Z13.31 Encounter for screening for depression
CPT/HCPCS: 36415; 80053; 84702; 85025; 85610; 87389

== ENCOUNTER 2022-02-16 11:37 | Outpatient (REF) | payer OTHER, SELFPAY ==
[2022-02-16 12:54] LABS: Partial Thromboplastin Time 38.5 SEC (26.0-36.4)
== END 2022-02-16 11:38 | disposition home or self-care (01) ==
LOC: HO.LAB 11:37
PROVIDERS: PCP Internal Medicine; Visit Provider Internal Medicine
DX: Z01.818 Encounter for other preprocedural examination (principal)
CPT/HCPCS: 36415; 85730

== ENCOUNTER → 2022-04-19 14:55 | Outpatient (BNVA) | payer OTHER, SELFPAY | PROVIDERS: PCP Internal Medicine; Visit Provider Advanced Practice Midwife | DX: Z30.42 Encounter for surveillance of injectable contraceptive (principal) | CPT/HCPCS: 96372; 99211 ==

== ENCOUNTER 2022-07-05 14:43 | Outpatient (REF) | payer OTHER, SELFPAY ==
[2022-07-06 15:18] LABS: CT PCR NOT DETECTED (Not Detect.); NG PCR NOT DETECTED (Not Detect.)
[2022-07-07 09:37] LABS: BV Int Neg Control Negative (Negative); BV Int Pos Control Positive (Positive)
== END 2022-07-05 14:44 | disposition home or self-care (01) ==
LOC: HO.LNP 14:43
PROVIDERS: PCP Internal Medicine; Visit Provider Advanced Practice Midwife
DX: Z01.419 Encounter for gynecological examination (general) (routine) without abnormal findings (principal); R68.82 Decreased libido
CPT/HCPCS: 0353U; 87480; 87510; 87660; 88142

== ENCOUNTER → 2022-07-13 12:43 | Outpatient (BNVA) | payer OTHER, SELFPAY | PROVIDERS: PCP Internal Medicine; Visit Provider Advanced Practice Midwife | DX: Z30.42 Encounter for surveillance of injectable contraceptive (principal) | CPT/HCPCS: 96372; 99211 ==

== ENCOUNTER 2022-07-22 22:28 | Emergency (ER) | payer OTHER, SELFPAY ==
[2022-07-22 22:40] VITALS: BP 130/73; PULSE 104; RESP 16; TEMP 37.1; O2SAT 97; BMI 25.9
[2022-07-22 23:11] LABS: IDNOW Serial# 08D9AD1C; Strep A Nucleic Acid Negative (Negative)
--- NOTE | 2022-07-22 23:12 | ED.URI ---
HPI - URI/Sore Throat General Chief Complaint: Upper Respiratory Symptoms Stated Complaint: sore throat,ear pain Time Seen by Provider: 07/22/22 23:08 Source: patient Mode of arrival: ambulatory Limitations: no limitations History of Present Illness HPI Narrative: 21-year-old female presents with sore throat, cough, bilateral ear pain with nasal congestion. Patient has had negative COVID test. Also states that her daughter has similar symptoms. MD elicited complaint: cough, sore throat, nasal congestion and sinus pain (Bilateral ear pain) Onset (ago): day(s) (3) Consistency: constant and progressively worsening Severity: moderate Description of mucous: clear Able to tolerate fluids by mouth: Yes Exacerbating factors: swallowing and speaking Relieving factors: nothing Context: sick contacts Associated symptoms: chills, myalgias, rhinorrhea, nasal congestion, sore throat, cough and ear pain Treatments prior to arrival: acetaminophen and ibuprofen Related Data Previous Rx's Medication Instructions Recorded medroxyprogesterone 150 mg/mL 150 mg IM Q12W #1 mL 07/05/22 intramuscular suspension (Depo-Provera) amoxicillin 875 mg-potassium 1 tab PO Q12H 10 days #20 tabs 07/22/22 clavulanate 125 mg tablet Allergies Allergy/AdvReac Type Severity Reaction Status Date / Time shrimp Allergy Unknown SWELLING Verified 07/22/22 22:40 Review of Systems Review of Systems: Constitutional: No Fever, positive Chills, positive fatigue, positive Malaise ENT/Mouth: positive sore throat, positive runny nose, positive bilateral ear pain Eyes: No Discharge Cardiovascular: No Chest Pain, No SOB Respiratory: Positive Cough, No Sputum, No Wheezing, No Dyspnea Gastrointestinal: No Nausea, No Vomiting, No Diarrhea Musculoskeletal: positive Myalgia Skin: No rash Neuro: No Headache Yes all other systems are reviewed and are negative PMFSH Past Medical History Attestation statement: The following information was validated with the patient. Source: old records reviewed Medical History (Updated 07/22/22 @ 23:38 by Fina Segovia NP) No known health problems Renal calculus Surgical History History of cosmetic plastic surgery Family History Family History Mother Epilepsy Maternal Grandmother Diabetes HTN (hypertension) Social History Social History Household Members: Family Housing: House Alcohol intake: never Patient Tobacco Use Status: Never used Tobacco e-Cigarette/Vaping Use: Never Used Trauma History: none Special rachel needs: No Agree to transfusion: Yes Advance Directives: No Advance Directives Information Provided: No Current occupational status: employed 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 Oriented X3. Mild distress. Eyes: Pupils equal, round and reactive to light. EOMI. ENT: Pharynx erythematous of bilateral tonsillar swelling and exudates. Bilateral tympanic membranes erythematous, bulging, suppurative without perforation. Canals are intact. no mastoid tenderness noted. Neck: Normal inspection. Neck supple. Positive posterior and anterior cervical lymphadenopathy. No nuchal rigidity. No vertebral tenderness. CVS: Normal heart rate and rhythm. Pulses normal. Respiratory: No respiratory distress. Breath sounds normal. Abdomen: Soft and nontender. Skin: Skin warm and dry. Normal skin color. Normal skin turgor. Extremities: Gait well-balanced well coordinated. Neuro: No motor deficit. No sensory deficit. Cranial nerves 2-12 intact Course Course Course Narrative: 21-year-old female presents with 3 days of upper respiratory symptoms. Tested for COVID influenza RSV and strep while in the waiting room, all of which are negative. Patient's physical exam is consistent with strep pharyngitis with pharyngeal erythema with cobblestoning, bilateral tonsillar swelling with exudates. Anterior posterior cervical lymphadenopathy. Bilateral bulging erythematous tympanic membranes without perforation. Canals are intact. Plan of care is to treat for pharyngitis and otitis media with Augmentin. Will give dose of Tylenol to help alleviate symptoms of pain. Supportive measures discussed Tylenol, Motrin, plenty of fluids, and discarding her toothbrush after antibiotic treatment is completed. 23:12 patient verbalized understanding of and agrees to plan of care discharge home. Verbalized understanding of signs symptoms indicating need for emergent intervention. Medications Administered Discontinued Medications Generic Name Dose Route Start Last Admin Trade Name Bonnie PRN Reason Stop Dose Admin Amoxicillin/Clavulanate Potassium 875 mg 07/22/22 23:36 07/23/22 00:23 Amoxicillin/Potassium Clav 875 Mg Tablet PO 07/22/22 23:37 875 mg ONCE ONE Administration Ibuprofen 600 mg 07/22/22 23:36 07/23/22 00:23 Ibuprofen 600 Mg Tablet PO 07/22/22 23:37 600 mg ONCE ONE Administration Medical Decision Making Differential Diagnosis Differential Diagnoses: The differential diagnosis associated with the presentation includes COVID, influenza, RSV, pharyngitis, otitis media, otitis externa, viral syndrome Lab Data MDM Lab Attestation statement: I reviewed the patient's lab results. Labs: Lab Results 07/22/22 07/22/22 07/22/22 Range/Units 22:49 22:49 22:49 COVID-19 (CHARLI) Negative (Negative) COVID-19 Clin Com See Note Influenza Type A (SADIE) Negative (Negative) Influenza Type B (SADIE) Negative (Negative) Influenza A & B Note See Note S. pyogenes GrpA SADIE Negative (Negative) External Record Review External record reviewed: Outpatient record and Prior outpatient labs Prescription Management I considered prescription management with: Pain Medication and Antibiotic Tylenol, Motrin Discharge Plan Discharge Clinical Impression: Otitis media, Pharyngitis Patient Disposition: Home, Self-Care Instructions: Pharyngitis (ED), Ear Infection (ED) Additional Instructions: Your evaluated for sore throat and ear pain. Your physical exam is consistent with pharyngitis and otitis media. Please take Augmentin 875 mg twice a day for the next days. Finish the entire course of this medication. Alternate Tylenol 650 mg every 6 hours and Motrin 600 mg every 6 hours as needed for pain and fever management. Consider taking these medications 3 hours apart so you have pain and fever management every 3 hours. Write down what time you take these medications to prevent accidental overdose. Motrin is the same medication as Advil and ibuprofen. Tylenol is the same medication as acetaminophen. Thank you for choosing this emergency department for evaluation. Please follow-up with primary care physician as needed. Return to the emergency department for any new, concerning, or worsening symptoms. Prescriptions: New amoxicillin-pot clavulanate 875-125 mg tablet 1 tab PO Q12H 10 Days Qty: 20 0RF No Action medroxyprogesterone [Depo-Provera] 150 mg/mL suspension 150 mg IM Q12W Qty: 1 5RF Stand Alone Forms: Work/School Release Interventions: ED Discharge Assessment Last Done: 07/23/22 00:52 Discharge Date/Time: 07/23/22 00:55
[2022-07-22 23:15] LABS: COVID-19 Test Negative (Negative); IDNOW Serial# 9DB6401D; IDNOW Serial# BCCEAD1C; Influenza A Negative (Negative); Influenza B2 Negative (Negative)
[2022-07-23] MEDS: Amoxicillin/Potassium Clav 875 MG TABLET PO (00:23)
[2022-07-23] MEDS: Ibuprofen 600 MG TABLET PO (00:23)
== END 2022-07-23 00:55 | disposition home or self-care (01) ==
PROVIDERS: Emergency Provider Emergency Medicine; PCP Internal Medicine
DX: H66.93 Otitis media, unspecified, bilateral (principal); J02.9 Acute pharyngitis, unspecified; Z20.822 Contact with and (suspected) exposure to COVID-19
CPT/HCPCS: 87502; 87635; 87651; 99283

== ENCOUNTER 2022-08-08 02:35 | Emergency (ER) | payer OTHER, SELFPAY ==
[2022-08-08 02:41] VITALS: BP 122/79; PULSE 116; RESP 18; TEMP 37.7; O2SAT 96; BMI 25.9
[2022-08-08 03:02] LABS: IDNOW Serial# 6674DD1D; Strep A Nucleic Acid Negative (Negative)
[2022-08-08 03:30] LABS: Influenza A PCR NEGATIVE (Negative); Influenza B PCR NEGATIVE (Negative); Resp Syncy Virus RNA Qual PCR NEGATIVE (Negative); SARS COV2 PCR INHOUSE POSITIVE (Negative)
--- NOTE | 2022-08-08 04:08 | ED.GENADULT ---
HPI - General Adult General Chief complaint: General Medical Stated complaint: flu like symptoms Time Seen by Provider: 08/08/22 02:57 Source: patient Mode of arrival: ambulatory History of Present Illness HPI narrative: 21-year-old female who has positive sick contacts by her family and has felt flu-like symptoms since with persistent cough, body aches, sore throat and subjective fevers and chills. Related Data Previous Rx's Medication Instructions Recorded medroxyprogesterone 150 mg/mL 150 mg IM Q12W #1 mL 07/05/22 intramuscular suspension (Depo-Provera) amoxicillin 875 mg-potassium 1 tab PO Q12H 10 days #20 tabs 07/22/22 clavulanate 125 mg tablet Allergies Allergy/AdvReac Type Severity Reaction Status Date / Time shrimp Allergy Unknown SWELLING Verified 07/22/22 22:40 Review of Systems Review of Systems: Pertinent positives and negatives as stated in HPI [facility] Past Medical History Source: nursing notes reviewed Medical History No known health problems Renal calculus Surgical History History of cosmetic plastic surgery Family History Family History Mother Epilepsy Maternal Grandmother Diabetes HTN (hypertension) Social History Social History Household Members: Family Housing: House Alcohol intake: never Patient Tobacco Use Status: Never used Tobacco e-Cigarette/Vaping Use: Never Used Trauma History: none Special rachel needs: No Agree to transfusion: Yes Advance Directives: No Advance Directives Information Provided: Yes Current occupational status: employed 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 GENERAL: Well developed, well nourished, in no acute distress. HEAD: Normocephalic/atraumatic EYES: PERRLA, EOMI EARS: Ext canals without abnormality LUNGS: Normal breath sounds. No adventitious sounds or accessory muscle use. SpO2<96> CARDIOVASCULAR: Regular rate and rhythm without noted murmurs ABDOMEN: Soft, non-tender, non-distended with bowel sounds NEUROLOGIC: Alert and oriented x 4. Strength and sensation to light touch were grossly intact x 4. Medical Decision Making Medical Decision Making [facility] Narrative: 21-year-old female with history and clinical presentation after review of all investigations demonstrates that she has a viral syndrome and is noted be COVID-19 positive. Patient received combination of analgesics as well as cough suppressants and was otherwise discharged home to remain isolated for the remainder of her COVID infection. Differential Diagnosis Please see the discussion above Lab Data Please see the discussion above Labs: Lab Results 08/08/22 08/08/22 Range/Units 02:48 02:48 Influenza Type A (PCR) NEGATIVE (Negative) Influenza Type B (PCR) NEGATIVE (Negative) RSV RNA Qual (PCR) NEGATIVE (Negative) SARS-CoV-2 RNA (RT-PCR) POSITIVE A (Negative) S. pyogenes GrpA SADIE Negative (Negative) Discharge Plan Discharge Clinical Impression: Viral syndrome, Lab test positive for detection of COVID-19 virus Patient Disposition: Home, Self-Care Instructions: Viral Syndrome (ED), COVID-19 (Coronavirus Disease 2019) (ED) Additional Instructions: 1. You must remain isolated until Tuesday, 08/10. 2. Resume all other home medications as prescribed. 3. Please follow-up with your primary care provider on Tuesday morning via telemedicine appointment. Return to the ER for any worsening symptoms. Prescriptions: No Action amoxicillin-pot clavulanate 875-125 mg tablet 1 tab PO Q12H 10 Days Qty: 20 0RF medroxyprogesterone [Depo-Provera] 150 mg/mL suspension 150 mg IM Q12W Qty: 1 5RF Referrals: Sandy Marquez MD [Primary Care Provider] -
[2022-08-08] MEDS: Acetaminophen 325 MG TABLET 975 MG PO (04:43)
[2022-08-08] MEDS: Ibuprofen 400 MG TABLET PO (04:43)
[2022-08-08] MEDS: Benzonatate 100 MG CAPSULE 200 MG PO (04:43)
== END 2022-08-08 04:48 | disposition home or self-care (01) ==
PROVIDERS: Emergency Provider Student in an Organized Health Care Education/Training Program; PCP Internal Medicine
DX: U07.1 COVID-19 (principal); B34.9 Viral infection, unspecified; Z79.899 Other long term (current) drug therapy
CPT/HCPCS: 0241U; 87651; 99283

== ENCOUNTER → 2022-10-08 12:57 | Outpatient (BNVA) | payer OTHER, SELFPAY | PROVIDERS: PCP Internal Medicine; Visit Provider Advanced Practice Midwife | DX: Z30.42 Encounter for surveillance of injectable contraceptive (principal) | CPT/HCPCS: 96372; 99211 ==

== ENCOUNTER 2022-12-31 12:44 | Outpatient (AMB) | payer OTHER, SELFPAY ==
[2022-12-31 13:16] VITALS: BMI 27.0
--- NOTE | 2022-12-31 13:16 | AM.OFFVISNUR ---
Intake Vital Signs 12/31/22 13:16 Height 5 ft 1 in Weight 143 lb BMI 27.0 Intake Visit Reasons: DEPO Scale And Skip Car Operator Required: No Allergies shrimp Allergy (Unknown, Verified 07/22/22 22:40) SWELLING Is last menstrual period known: No Post menopausal: No Patient : No Nursing Note Clarisa is here for scheduled Depo provera injection. No c/o. Pt tolerated injection well. She will schedule her next injection in 12 weeks. Pt verbalizes understanding and agrees with plan. No further questions. Office Procedures Depo Questionnaire If YES to any of the following questions, please consult a provider. Date of last injection: 10/01/22 Date of last gynecology exam: 07/05/22 Menstrual pattern since last injection has been: Not Applicable Irregular bleeding?: No Breast lumps or other breast changes?: No Changes in weight or appetite?: No Depression or changes in mood?: No Abnormal hair growth or loss?: No Skin problems (rash, acne, discoloration)?: No Pain at the injection site?: No Headaches?: No Nervousness?: No Abdominal pain or cramping?: No Dizziness or nausea?: No Fatigue or weakness?: No Decrease in sexual drive?: No Chest pain or shortness of breath?: No Swelling in arms or legs?: No Form completed by?: Belinda Sanchez RN Office Meds Depo-Provera Performing Provider: Mya Frazier CNM Administered by: Belinda Sanchez on 12/31/22 13:19 Dose Route Admin Location Lot Number Expiration Date NDC Inspector Electromechanical 150 mg IM left deltoid [id number] 09/29/24 16564-480-04 [facility] Coding Level of Care Code Established Pt Est Pt Level 1 (73104) Patient Type Established History Problem Focused Medical Decision Making Straight Forward Diagnoses Time Spent (min) 10 Assessment & Plan Assessment & Plan Orders: Orders AMB Medroxyprogesterone Injection Patient Supplied Today Z30.42 - Encounter for surveillance of injectable contraceptive
== END 2022-12-31 13:15 | disposition home or self-care (01) ==
PROVIDERS: PCP Internal Medicine; Visit Provider Advanced Practice Midwife
DX: Z30.42 Encounter for surveillance of injectable contraceptive (principal)

== ENCOUNTER → 2022-12-31 12:44 | Outpatient (BNVA) | payer OTHER, SELFPAY | PROVIDERS: PCP Internal Medicine; Visit Provider Advanced Practice Midwife | DX: Z30.42 Encounter for surveillance of injectable contraceptive (principal) | CPT/HCPCS: 96372; 99211; J1050 ==

== ENCOUNTER 2023-03-22 12:59 | Outpatient (AMB) | payer OTHER, SELFPAY ==
[2023-03-22 13:15] VITALS: BMI 27.8
--- NOTE | 2023-03-22 13:15 | AM.OFFVISNUR ---
Intake Vital Signs 03/22/23 13:15 Height 5 ft 1 in Weight 66.678 kg BMI 27.8 Intake Visit Reasons: DEPO Allergies shrimp Allergy (Unknown, Verified 07/22/22 22:40) SWELLING Nursing Note Clarisa is here today for her Depo-Provera inj. She denies any problems. return in 12 wks. Office Procedures Depo Questionnaire If YES to any of the following questions, please consult a provider. Date of last injection: 12/31/22 Date of last gynecology exam: 07/05/22 Menstrual pattern since last injection has been: Not Applicable Irregular bleeding?: No Breast lumps or other breast changes?: No Changes in weight or appetite?: No Depression or changes in mood?: No Abnormal hair growth or loss?: No Skin problems (rash, acne, discoloration)?: No Pain at the injection site?: No Headaches?: No Nervousness?: No Abdominal pain or cramping?: No Dizziness or nausea?: No Fatigue or weakness?: No Decrease in sexual drive?: No Chest pain or shortness of breath?: No Swelling in arms or legs?: No Form completed by?: Chris Gupta LPN Office Meds Depo-Provera 150 mg/mL intramuscular syringe Performing Provider: Mya Frazier CNM [place] [facility] Administered by: Charissa Gupta LPN on 03/22/23 13:15 Dose Route Admin Location Dispensed Lot Number Expiration Date [facility] Audio Visual Manager 150 mg IM lt. Deltoid 1 mL [id number] 03/01/25 69302-087-87 [facility] Coding Level of Care Code Established Pt Est Pt Level 1 (47536) Patient Type Established History Problem Focused Exam Problem Focused Medical Decision Making Straight Forward Time Spent (min) 15 Assessment & Plan Assessment & Plan Orders: Orders AMB Medroxyprogesterone Injection Patient Supplied Today Z30.42 - Encounter for surveillance of injectable contraceptive
== END 2023-03-22 13:15 | disposition home or self-care (01) ==
PROVIDERS: PCP Internal Medicine; Visit Provider Advanced Practice Midwife
DX: Z30.42 Encounter for surveillance of injectable contraceptive (principal)

== ENCOUNTER → 2023-03-22 12:59 | Outpatient (BNVA) | payer OTHER, SELFPAY | PROVIDERS: PCP Internal Medicine; Visit Provider Advanced Practice Midwife | DX: Z30.42 Encounter for surveillance of injectable contraceptive (principal) | CPT/HCPCS: 96372; 99211; J1050 ==

== ENCOUNTER 2023-05-18 10:27 | Outpatient (AMB) | payer OTHER, SELFPAY ==
--- OUTSIDE RECORDS SUMMARY | 2023-05-18 10:29 | XMS_ITS | Continuity of Care Document ---
Author Name Unknown Organization [facility] ter Address [address] [place] [id number] Care Team Providers Care Traffic Rate Analyst Name Role Phone Angel BRAGG, Ashok Perez Primary Care Physician [phone] Encounter [facility] Date(s): 05/09/21 - 05/09/[address] [address]- Discharge Disposition: A-D/C Home Attending Physician: Arabella Tidwell MD Admitting Physician: Arabella Tidwell MD Referring Physician: Arabella Tidwell MD Allergies, Adverse Reactions, Alerts Substance Reaction Severity Status shellfish Active Immunizations Given and Recorded Vaccine Date Status Refusal Reason SARS-CoV-2 (COVID-19) mRNA BNT-162b2 vac 01/30/21 Recorded SARS-CoV-2 (COVID-19) mRNA BNT-162b2 vac 01/08/21 Recorded Medications doxylamine 25 mg oral tablet 1 tablet = 25 mg, By Mouth, Daily, 15 to 30 minutes before bed, # 60 tablet, 1 Refills, Maintenance, 11/04/20 20:48:00 EDT, Tablet, [facility]/pharmacy #[id number], Partial fill upon patient request if the prescription is for a schedule II opioid drug., 55.7, kg,... Start Date: 11/04/20 Status: Ordered ibuprofen 400 mg oral tablet 400 mg, 1, tablet, By Mouth, Every 6 hours, PRN, # 30 tablet, Refills 0, Tot. Refills 0, Maintenance, for pain, 03/11/16 19:07:34, Print Requisition Start Date: 03/11/16 Status: Ordered Macrobid macrocrystals-monohydrate 100 mg oral capsule 1 capsule = 100 mg, By Mouth, 2 times a day, for 7 days, # 14 capsule, 0 Refills, Acute 05/14/21 19:52:00 EST, 05/07/21 19:52:00 EST, Capsule, [facility]/pharmacy #[id number], Partial fill upon patient request ifthe prescription is for a schedule II opioid drug.,... Start Date: 05/07/21 Stop Date: 05/14/21 Status: Ordered MiraLax oral powder for reconstitution See Instructions, dissolve 2 capfuls of Miralax in 8 oz of water or juice, drink By Mouth Daily, # 527 Gm, 0 Refills, Maintenance, 03/11/16 19:07:49, REC Powder Start Date: 03/11/16 Status: Ordered PNV By Mouth, Daily, 0 Refills, Maintenance, 10/30/20 17:37:00 EDT, Partial fill upon patient request if the prescription is for a schedule II opioid drug. Start Date: 10/30/20 Status: Ordered Reglan 5 mg oral tablet 1 tablet = 5 mg, By Mouth, Every 6 hours, PRN Nausea & Vomiting, # 10 tablet, 0 Refills, Maintenance, 11/04/20 20:48:00 EDT, Tablet, [facility]/pharmacy #[id number], Partial fill upon patient request if the prescription is for a schedule II opioid drug., 55.7, kg,... Start Date: 11/04/20 Status: Ordered Tylenol 325 mg oral tablet 650 mg, 2, tablet, By Mouth, Every 4 hours, PRN, # 120 tablet, Refills 0, Tot. Refills 0, Maintenance, for pain, 03/11/16 19:08:09, Print Requisition Start Date: 03/11/16 Status: Ordered Vitamin B6 Daily, 0 Refills, Maintenance, 10/30/20 17:37:00 EDT, Partial fill upon patient request if the prescription is for a schedule II opioid drug. Start Date: 10/30/20 Status: Ordered Vital Signs Most recent to oldest [Reference Range]: 1 2 3 Height 155 cm (05/09/21 6:00 PM) Weight 71.1 kg (05/09/21 5:44 PM) Oxygen Saturation [94-100 %] 98 % (05/09/21 9:30 PM) 99 % (05/09/21 8:45 PM) 98 % (05/09/21 7:30 PM) Pulse Rate [55-90 bpm] 80 bpm (05/09/21 6:00 PM) Blood Pressure [90-138/55-84 mm Hg] 120/65mm Hg (05/09/21 6:00 PM) Blood pressure sites Arm, right (05/09/21 6:00 PM) Temperature Route Oral (05/09/21 6:00 PM) Dry Weight 71.1 kg (05/09/21 5:44 PM) Weight Obtained Via Standing scale (05/09/21 5:44 PM) Social History Social History Type Response Smoking Status Never (less than 100 in lifetime) entered on: 11/04/20 Sex
--- OUTSIDE RECORDS SUMMARY | 2023-05-18 10:29 | XMS_ITS | Continuity of Care Document ---
Author Name Unknown Organization [facility] ter Address [address] [place] [id number]- Care Team Providers Care Color Laboratory Technician Name Role Phone Not on Staff, PCP Primary Care Physician Unavail able [place] [facility] [place] [facility] [place](s[place] 06/17/21 - 06/17/[address] [id number] Discharge Disposition: A-D/C Home Attending Physician: Ronald Rivera MD Admitting Physician: Ronald Rivera MD Referring Physician: Ronald Rivera MD Allergies, Adverse Reactions, Alerts Substance Reaction [...] 1 Refills, Maintenance, 11/04/20 20:48:00 EDT, Tablet, [id number], Partial fill upon patient request if the prescription is for a schedule II opioid drug., 55.7, kg,... Start Date: 11/04/20 Status: Ordered ibuprofen 400 mg oral tablet 400 mg, 1, tablet, By Mouth, Every 6 hours, PRN, # 30 tablet, Refills 0, Tot. Refills 0, Maintenance, for pain, 03/11/16 19:07:34, Print Requisition Start Date: 03/11/16 Status: Ordered MiraLax oral powder for reconstitution [...] 0 Refills, Maintenance, 11/04/20 20:48:00 EDT, Tablet, [id number], Partial fill upon patient request [...] opioid drug. Start Date: 10/30/20 Status: Ordered Problem List Condition Effective Dates Status Health Status Inform ant Obese class I(Confirmed) Active Vital Signs Most recent to oldest [Reference Range]: 1 Oxygen Saturation [94-100 %] 98 % (06/17/21 3:44 PM) Blood Pressure [90-138/55-84 mm Hg] 117/ 62mm Hg (06/17/21 3:44 PM) Respiratory Rate [16-30 br/min] 18 br/mi n (06/17/21 3:44 PM) Temperature [96.8-100.4 DegF] 98.5 DegF (06/17/21 3:43 PM) Mode of Delivery (Oxygen) Room air (06/17/21 3:44 PM) Blood pressure sites Arm, right (06/17/21 3:44 PM) Dry Weight 78.2 kg (06/17/21 3:43 PM) Dry Weight Obtained Via Standing scale (06/17/21 3:43 PM) Social History Social History Type Response Smoking Status Never (less than 100 in lifetime) entered on: 11/04/20 Sex
--- OUTSIDE RECORDS SUMMARY | 2023-05-18 10:29 | XMS_ITS | Continuity of Care Document ---
Author Name Unknown Organization [facility] ter Address [address] [place] [id number]- Care Team Providers Care Research Executive Name Role Phone Angel BRAGG, Ashok Perez Primary Care Physician [phone] [place] [facility] [place] 11/04/[address] [id number] Discharge Disposition: A-D/C Home Attending Physician: Ronald Rivera MD Admitting Physician: Ronald Rivera MD Referring Physician: Ronald Rivera MD Allergies, Adverse Reactions, Alerts Substance Reaction Severity Status shellfish Active Medications doxylamine 25 mg oral tablet 1 tablet = 25 mg, By Mouth, Daily, 15 to 30 minutes before bed, # 60 tablet, 1 Refills, Maintenance, 11/04/20 20:48:00 EDT, Tablet, [id number], Partial fill upon patient request if the [...] 0 Refills, Maintenance, 11/04/20 20:48:00 EDT, Tablet, [id number], Partial fill upon patient request if the [...] Most recent to oldest [Reference Range]: 1 Weight 55.7 kg (11/04/20 6:15 PM) Oxygen Saturation [94-100 %] 100 % (11/04/20 6:15 PM) Pulse Rate [55-90 bpm] 80 bpm (11/04/20 6:15 PM) Blood Pressure [90-138/55-84 mm Hg] 120/ 66mm Hg (11/04/20 6:15 PM) Respiratory Rate [16-30 br/min] 16 br/mi n (11/04/20 6:15 PM) Temperature [96.8-100.4 DegF] 97.6 DegF (11/04/20 6:15 PM) Mode of Delivery (Oxygen) Room air (11/04/20 6:15 PM) Blood pressure sites Arm, left 1 (11/04/20 6:15 PM) Temperature Route Oral (11/04/20 6:15 PM) Dry Weight 55.7 kg (11/04/20 6:15 PM) Weight Obtained Via Standing scale (11/04/20 6:15 PM) Dry Weight Obtained Via Standing scale (11/04/20 6:15 PM) 1Result Comment: left arm measured at 26cm Social History Social History Type Response Smoking Status Never (less than 100 in lifetime) entered on: 11/04/20 Sex
--- OUTSIDE RECORDS SUMMARY | 2023-05-18 10:29 | XMS_ITS | Continuity of Care Document ---
Author Name Unknown Organization [facility] ter Address [address] [place] [id number]- Care Team Providers Care Automatic I Threading Machine Feeder Name Role Phone Not on Staff, PCP Primary Care Physician Unavail able Encounter [facility] Date(s): 06/17/21 - 06/20/[address] [id number] Discharge Disposition: A-D/C Home Attending Physician: Dawn Britton MD Admitting Physician: Dawn Britton MD Referring Physician: Dawn Britton MD Allergies, Adverse Reactions, Alerts Substance Reaction Severity Status shellfish Active Immunizations Given and Recorded Vaccine Date Status Refusal Reason SARS-CoV-2 (COVID-19) mRNA BNT-162b2 vac 01/30/21 Recorded SARS-CoV-2 (COVID-19) mRNA BNT-162b2 vac 01/08/21 Recorded Medications Acetaminophen Tablet 650 mg, Tablet, By Mouth, Every 4 hours, PRN for Pain , Mild, (1-3), may give 325mg per patient preference and re-dose with 325mg within 4 hours, if needed. Patient should only receive a total of 650mg of Acetaminophen every 4 hours., Routine, 06/18... Start Date: 06/18/21 Stop Date: 06/20/21 Status: Discontinued doxylamine 25 mg oral tablet 1 tablet = 25 mg, By Mouth, Daily, 15 to 30 minutes before bed, # 60 tablet, 1 Refills, Maintenance, 11/04/20 20:48:00 EDT, Tablet, [id number], Partial fill upon patient request if the [...] 0 Refills, Maintenance, 11/04/20 20:48:00 EDT, Tablet, [facility]/pharm[facility] #[id number], Partial fill upon patient request if [...] Range]: 1 2 3 Height 155 cm (06/20/21 7:45 AM) 155 cm (06/20/21 12:08 AM) 155 cm (06/19/21 6:15 PM) Weight 77.1 kg (06/18/21 12:19 AM) 77.5 kg (06/17/21 9:29 PM) Oxygen Saturation [94-100 %] 99 % (06/19/21 12:05 AM) 100 % (06/18/21 10:19 AM) 99 % (06/18/21 9:55 AM) Pulse Rate [55-90 bpm] 80 bpm (06/20/21 7:45 AM) 60 bpm (06/20/21 12:08 AM) 62 bpm (06/19/21 6:15 PM) Body Mass Index [18.5-24.99] 32.09 *>HHI* (06/18/21 12:19 AM) Blood Pressure [90-138/55-84 mm Hg] 116/70mm Hg (06/20/21 7:45 AM) 105/48mm Hg (06/20/21 12:08 AM) 108/65mm Hg (06/19/21 6:15 PM) Respiratory Rate [16-30 br/min] 18 br/min (06/20/21 8:53 AM) 18 br/min (06/20/21 7:45 AM) 20 br/min (06/20/21 2:50 AM) Temperature [96.8-100.4 DegF] 98.8 DegF (06/20/21 7:45 AM) 98.9 DegF (06/20/21 12:08 AM) 98.1 DegF (06/19/21 6:15 PM) Mode of Delivery (Oxygen) Room air (06/19/21 12:05 AM) Blood pressure sites Arm, right (06/19/21 6:15 PM) Arm, right (06/19/21 9:15 AM) Arm, left (06/18/21 2:49 PM) Temperature Route Oral (06/20/21 7:45 AM) Oral (06/20/21 12:08 AM) Oral (06/19/21 6:15 PM) Dry Weight 77.1 kg (06/18/21 12:19 AM) 77.5 kg (06/17/21 9:29 PM) Weight Obtained Via Standing scale (06/17/21 9:29 PM) Dry Weight Obtained Via Standing scale (06/17/21 9:29 PM) Social History Social History Type Response Smoking Status Never (less than 100 in lifetime) entered on: 11/04/20 Sex
--- OUTSIDE RECORDS SUMMARY | 2023-05-18 10:29 | XMS_ITS | Continuity of Care Document ---
Author Name Unknown Organization [facility] ter Address [address] [place] [address]- Care Team Providers Care Composition Mixer Name Role Phone Angel BRAGG, Ashok Perez Primary Care Physician [phone] Encounter [facility] [place] Date(s): 10/30/20 - 10/30/[address] [address]- Discharge Disposition: A-D/C Home Attending Physician: Arabella Tidwell MD Admitting Physician: Arabella Tidwell MD Referring Physician: Arabella Tidwell MD Allergies, Adverse Reactions, Alerts Substance Reaction Severity Status shellfish Active Medications ibuprofen 400 mg oral tablet 400 mg, [...] opioid drug. Start Date: 10/30/20 Status: Ordered Tylenol 325 mg oral tablet [...] recent to oldest [Reference Range]: 1 Weight 56.9 kg (10/30/20 3:17 PM) Oxygen Saturation [94-100 %] 100 % (10/30/20 3:17 PM) Pulse Rate [55-90 bpm] 84 bpm (10/30/20 3:17 PM) Blood Pressure [90-138/55-84 mm Hg] 105/ 60mm Hg (10/30/20 3:17 PM) Respiratory Rate [16-30 br/min] 18 br/mi n (10/30/20 3:17 PM) Temperature [96.8-100.4 DegF] 98.5 DegF (10/30/20 3:17 PM) Mode of Delivery (Oxygen) Room air (10/30/20 3:17 PM) Blood pressure sites Arm, right 1 (10/30/20 3:17 PM) Temperature Route Oral (10/30/20 3:17 PM) Dry Weight 56.9 kg (10/30/20 3:17 PM) 1Result Comment: right upper arm measured 26cm
--- OUTSIDE RECORDS SUMMARY | 2023-05-18 10:29 | XMS_ITS | Continuity of Care Document ---
Author Name Unknown Organization [facility] ter Address [address] [place] [address]- Care Team Providers Care Bleach Analyst Name Role Phone Ashok Ortiz MD Primary Care Physician [phone] [place] [facility] [place] - 02/[place]/[address] [id number] Discharge Disposition: A-D/C Home Attending Physician: Ashok Ferro MD Admitting Physician: Ashok Ferro MD Referring Physician: Ashok Ferro MD Allergies, Adverse Reactions, Alerts Substance Reaction [...] Refills, Maintenance, 11/04/20 20:48:00 EDT, Tablet, [id number], Partial fill upon patient request if the [...] 0 Refills, Maintenance, 11/04/20 20:48:00 EDT, Tablet, [facility]/pharmacy #[id number], Partial fill upon patient request if [...] opioid drug. Start Date: 10/30/20 Status: Ordered Procedures Procedure Date Related Diagnosis Body Site Status [place]oe tooth Completed Vital Signs Most recent to oldest [Reference Range]: 1 Height 155 cm (02/15/21 11:19 PM) Weight 60.2 kg (02/15/21 11:00 PM) Blood Pressure [90-138/55-84 mm Hg] 108/ 57mm Hg (02/15/21 11:19 PM) Respiratory Rate [16-30 br/min] 18 br/mi n (02/15/21 11:19 PM) Temperature [96.8-100.4 DegF] 98.6 DegF (02/15/21 11:00 PM) Blood pressure sites Arm, left (02/15/21 11:19 PM) Temperature Route Oral (02/15/21 11:00 PM) Dry Weight 60.2 kg (02/15/21 11:00 PM) Weight Obtained Via Standing scale (02/15/21 11:00 PM) Dry Weight Obtained Via Standing scale (02/15/21 11:00 PM) Social History Social History Type Response Smoking Status Never (less than 100 in lifetime) entered on: 11/04/20 Sex
[2023-05-18 10:31] VITALS: BP 110/68; BMI 28.0
--- NOTE | 2023-05-18 10:31 | MHC.OFFVIS ---
Intake Vital Signs 05/18/23 10:31 Height 5 ft 1 in Weight 148 lb BMI 28.0 BP 110/68 Intake Visit Reasons: Vaginal discharge Intake Note: has been having weird discharge. clear slimy and stringy, Burning when having intercourse Marine Fuel Dock Attendant Required: No Information Interpreted: non-clinical & clinical Senior Reliability Engineer: Senior Reliability Engineer Present (Emilee) Allergies shrimp Allergy (Unknown, Verified 05/18/23 10:34) SWELLING Medication List - Last Reconciled 05/18/23 by Mya Frazier CNM medroxyprogesterone (Depo-Provera) 150 mg IM Q12W Is last menstrual period known: No (no menses Depo) Post menopausal: No HPI Vaginal discharge HPI Details Patient is here could she was concerned about a during a whitish mucousy discharge. She just wants to get checked it did not have any odor so far she knew no itching She is on Depo-Provera and does not think she has been late with it but she had a similar discharge when she turned out to be with her daughter so she has a little nervous and she was wondering if she was feeling phantom kicks she would like a test to she has not really worried about STDs so declines blood work. She has been on the Depo for a while since her daughter was born a couple of years ago and before that she was on it from age 15 on she said it did take her about a year to get once she went off the Depo to get . She wonders if she should stay on it because people have told her that it has not good to not get a period and she is scared of other methods. 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 External Female Exam: normal external appearance and normal appearance of the urethra Speculum Exam - Vagina: normal appearance of the vagina and normal vaginal discharge Speculum Exam - Cervix: normal appearance of the cervix and Cervical os closed Results Reviewed Results Reviewed: test negative, Assessment & Plan Assessment & Plan (1) Screen for sexually transmitted diseases: Comment: accepts cultures, declines blood work for HIV etc. Code(s): Z11.3 - Encounter for screening for infections with a predominantly sexual mode of transmission (2) Depo-Provera contraceptive status: Comment: Last injection 03/22/2023. next due around 06/14/23 Code(s): Z30.42 - Encounter for surveillance of injectable contraceptive (3) control counseling: Code(s): Z30.09 - Encounter for other general counseling and advice on contraception (4) Cervical cancer screening: Comment: first pap done 07/05/22= neg Code(s): Z12.4 - Encounter for screening for malignant neoplasm of cervix Plan Offered a test reviewed the timing of getting the Depo-Provera every 12 weeks and how 1 could have different side effects if 1 was late and certainly increase the risk of . Reviewed all of the methods of control available currently after much discussion she thinks she will stay on the Depo for now we discussed in detail the Mirena IU S the ParaGard IU S Nexplanon Depo-Provera control pills control patches control rings. Side effects and how they work was discussed as well, as well as time to conceive from stopping which is a consideration for her she would like to have a baby now could she thinks it is good to have them close together but her partner is studying to be an motor electrician and wants to be well situated and has a couple of years more to go in his training. -I reviewed with the patient, all of the currently common used methods of control that are available. We reviewed how they work in the body, how they are taken, common side effects, uncommon side effects, precautions, and contraindications. -Discussed also factors that influence their effectiveness and use, and womens satisfaction with the method. -Discussed how each are used, and drawbacks of each method as well. -Methods covered included: condoms, control pills, control patches, control rings, Depo-Provera, Nexplanon, Mirena and Kyleena IUDs, and ParaGard IUDs. All of the above methods were covered in great detail including their side effect profiles and common experiences that women have and ways to mitigate against the negative experiences including attention to diet and exercise patient's with bleeding challenges that may occur her and efforts to time the initiation of the method to this start of the menstrual period. Orders: Orders CT NG by PCR Today Z11.3 - Encounter for screening for infections with a predominantly sexual mode of transmission Bacterial Vaginosis Panel Today Z11.3 - Encounter for screening for infections with a predominantly sexual mode of transmission Coding Level of Care Code Est Pt Level 3 (27667) Diagnoses Screen for sexually transmitted diseases Z11.3 Depo-Provera contraceptive status Z30.42 control counseling Z30.09 Cervical cancer screening Z12.4
== END 2023-05-18 12:13 | disposition home or self-care (01) ==
LOC: HO.HWSM 10:27
PROVIDERS: PCP Internal Medicine; Visit Provider Advanced Practice Midwife
DX: Z11.3 Encounter for screening for infections with a predominantly sexual mode of transmission (principal); Z30.42 Encounter for surveillance of injectable contraceptive; Z30.09 Encounter for other general counseling and advice on contraception; Z12.4 Encounter for screening for malignant neoplasm of cervix
CPT/HCPCS: 99213

== ENCOUNTER 2023-05-18 10:27 | Outpatient (REF) | payer OTHER, SELFPAY ==
[2023-05-19 04:52] LABS: CT PCR NOT DETECTED (Not Detect.); NG PCR NOT DETECTED (Not Detect.)
[2023-05-19 09:56] LABS: BV Int Neg Control Negative (Negative); BV Int Pos Control Positive (Positive)
== END 2023-05-18 10:28 | disposition home or self-care (01) ==
LOC: HO.LNP 10:27
PROVIDERS: PCP Internal Medicine; Visit Provider Advanced Practice Midwife
DX: N89.8 Other specified noninflammatory disorders of vagina (principal); Z11.3 Encounter for screening for infections with a predominantly sexual mode of transmission; Z12.4 Encounter for screening for malignant neoplasm of cervix
CPT/HCPCS: 0353U; 87480; 87510; 87660; 99212

== ENCOUNTER 2023-06-07 12:55 | Outpatient (AMB) | payer OTHER, SELFPAY ==
[2023-06-07 13:05] VITALS: BMI 28.5
--- NOTE | 2023-06-07 13:05 | AM.OFFVISNUR ---
Intake Vital Signs 06/07/23 13:05 Height 5 ft 1 in Weight 68.492 kg BMI 28.5 Intake Visit Reasons: Depo Allergies shrimp Allergy (Unknown, Verified 05/18/23 10:34) SWELLING Nursing Note ankur is here today for her scheduled Depo_Provera inj. She denies any problems with the Depo-provera. Pt is scheduled for 07/08/23 for her AG with Mya Hurt. Office Procedures Depo Questionnaire If YES to any of the following questions, please consult a provider. Date of last injection: 03/22/23 Date of last menstrual period: 06/07/23 Date of last gynecology exam: 07/05/22 Menstrual pattern since last injection has been: Light Irregular bleeding?: No Breast lumps or other breast changes?: No Changes in weight or appetite?: No Depression or changes in mood?: No Abnormal hair growth or loss?: No Skin problems (rash, acne, discoloration)?: No Pain at the injection site?: No Headaches?: No Nervousness?: No Abdominal pain or cramping?: No Dizziness or nausea?: No Fatigue or weakness?: No Decrease in sexual drive?: No Chest pain or shortness of breath?: No Swelling in arms or legs?: No Form completed by?: Chris Gupta LPN Office Meds Depo-Provera 150 mg/mL intramuscular syringe Performing Provider: Mya Frazier CNM Performing Location: [facility] [place] [facility] Administered by: Charissa Gupta LPN on 06/07/23 13:06 Dose Route Admin Location Dispensed Lot Number Expiration Date [facility] Body Care Manager 150 mg IM left deltoid 1 mL [id number] 07/30/25 50300-373-58 [facility] Coding Level of Care Code Established Pt Est Pt Level 1 (41601) Patient Type Established History Problem Focused Exam Problem Focused Medical Decision Making Straight Forward Time Spent (min) 15 Assessment & Plan Assessment & Plan Orders: Orders AMB Medroxyprogesterone Injection Patient Supplied Today Z30.42 - Encounter for surveillance of injectable contraceptive
== END 2023-06-07 13:04 | disposition home or self-care (01) ==
LOC: HO.HWS 12:55
PROVIDERS: PCP Internal Medicine; Visit Provider Advanced Practice Midwife
DX: Z30.42 Encounter for surveillance of injectable contraceptive (principal)

== ENCOUNTER → 2023-06-07 12:55 | Outpatient (BNVA) | payer OTHER, SELFPAY | PROVIDERS: PCP Internal Medicine; Visit Provider Advanced Practice Midwife | DX: Z30.42 Encounter for surveillance of injectable contraceptive (principal) | CPT/HCPCS: 96372; 99211; J1050 ==

== ENCOUNTER 2023-07-08 14:53 | Outpatient (AMB) | payer OTHER, SELFPAY ==
[2023-07-08 15:17] VITALS: BMI 28.5
--- NOTE | 2023-07-08 15:17 | MHC.OFFVIS ---
Intake Vital Signs 07/08/23 15:17 Height 5 ft 1 in Weight 151 lb BMI 28.5 Intake Visit Reasons: Annual Hotel Or Motel Manager Required: No Information Interpreted: non-clinical & clinical Director Clinical Data: Director Clinical Data Present (Emilee) Allergies shrimp Allergy (Unknown, Verified 07/08/23 15:20) SWELLING Medication List - Last Reconciled 07/08/23 by Mya Frazier CNM medroxyprogesterone (Depo-Provera) 150 mg IM Q12W Is last menstrual period known: No (no menses DEPO) Post menopausal: No HPI Annual HPI Details Patient is here scheduled for milk inspector annual exam she was seen only recently when she had a little bit of an increased discharge and everything turned out negative. She is on Depo-Provera and has been for year to and she is contemplating going off of it she does not want to use any other method of control except condoms she is afraid of getting and does not want to have another baby right now but she does not want control pills and does not think she would remember and does not want anything inside of her and she does not want the implant either. She thinks she could eat better and describes her diet as unhealthy could she eats a lot of fast food but when she describes what she is eating there is protein intake there could be some more vegetable in her intake. She thinks she could exercise more too. She had thought today was for her Depo but she actually came in June and had the Depo and her next Depo is due in August. 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 Female Reproductive History Menstrual Age of Menarche: 13 Duration of menses: 6-7 days control method: progesterone injection Total pregnancies: 1 Full term: 1 Number of Living Children: 1 Date of last pap smear: 07/06/22 (negative) Physical Exam Vital Signs: BMI result Body Mass Index 28.5 Const General: healthy appearing, comfortable, no acute distress, well developed and alert Nutritional Appearance: average body habitus Orientation/consciousness: patient oriented x3 Limitations: no limitations HEENT Head: Yes normocephalic Neck Neck: Yes normal visual inspection Thyroid: Thyroid normal Chest Chest palpation & inspection: normal inspection of the chest Breast/axilla inspection: normal inspection of the breasts and normal inspection of the axillae Breast/axilla palpation: normal palpation of the breasts and normal palpation of the axillae Resp Effort & Inspection: normal respiratory effort GI Inspection: Yes normal to inspection, No Abdominal wall edema and No distended Palpation (GI): Soft to palpation and nontender Other: Pelvic exam deferred as not due for Pap and patient had visit involving exam and screening for STIs just over a month ago everything was negative. External Female Exam: normal external appearance and normal appearance of the urethra Neuro General: patient oriented x3 Assessment & Plan Assessment & Plan (1) control counseling: Code(s): Z30.09 - Encounter for other general counseling and advice on contraception (2) Depo-Provera contraceptive status: Comment: Last injection 03/22/2023. next due around 06/14/23 Code(s): Z30.42 - Encounter for surveillance of injectable contraceptive (3) Cervical cancer screening: Comment: first pap done 07/05/22= neg Code(s): Z12.4 - Encounter for screening for malignant neoplasm of cervix (4) Well woman exam (no gynecological exam): Code(s): Z00.00 - Encounter for general adult medical examination without abnormal findings Plan -----Discussed in this visit the following: healthy balanced diet, regular and consistent exercise, getting recommended health screens, doing the best she can for her particular health concerns, kegel exercises, pap smear screening and followup recommendations, mammography screening and SBE, normal changes in cycles in her life stage--- . Reviewed that she will be due for next Pap in 2025 she did not need STI testing today because we did it just a few weeks ago and it was all negative. Reviewed options for control and decision making around making sure that she does not have an unplanned and if she wants her partner to use start using condoms consistently to start having these conversations now and she can decide herself if she wants the next Depo or not and it is up to her but just to be very careful that she would need to guard against and return to regular fertility and menses could happen quickly or be ever so slightly delayed. Refill on her Depo-Provera sent and reviewed nutritional and health goals. RTC 1 year and for next Depo if desired Medications: Refilled medroxyprogesterone (Depo-Provera) 150 mg IM Q12W 1 mL 5RF Coding Level of Care Code Est Pt Prev Care 18-39y(95[address]) Diagnoses control counseling Z30.09 Depo-Provera contraceptive status Z30.42 Cervical cancer screening Z12.4 Well woman exam (no gynecological exam) Z00.00
== END 2023-07-08 16:10 | disposition home or self-care (01) ==
LOC: HO.HWSM 14:54
PROVIDERS: PCP Internal Medicine; Visit Provider Advanced Practice Midwife
DX: Z01.419 Encounter for gynecological examination (general) (routine) without abnormal findings (principal)
CPT/HCPCS: 99395

== ENCOUNTER → 2023-07-08 14:53 | Outpatient (BNVA) | payer OTHER, SELFPAY | PROVIDERS: PCP Internal Medicine; Visit Provider Advanced Practice Midwife | DX: Z30.09 Encounter for other general counseling and advice on contraception (principal); Z30.42 Encounter for surveillance of injectable contraceptive; Z12.4 Encounter for screening for malignant neoplasm of cervix; Z00.00 Encounter for general adult medical examination without abnormal findings | CPT/HCPCS: 99395 ==

== ENCOUNTER 2023-11-16 08:13 | Outpatient (REF) | payer OTHER, SELFPAY ==
[2023-11-16 09:28] LABS: HCG Quantitative < 2 mIU/mL
== END 2023-11-16 08:14 | disposition home or self-care (01) ==
LOC: HO.LAB 08:13
PROVIDERS: PCP Internal Medicine; Visit Provider Advanced Practice Midwife
DX: N92.1 Excessive and frequent menstruation with irregular cycle (principal)
CPT/HCPCS: 36415; 84702

== ENCOUNTER 2024-06-19 12:34 | Emergency (ER) | payer OTHER, SELFPAY ==
[2024-06-19 12:43] VITALS: BP 112/63; PULSE 79; RESP 18; TEMP 36.9; O2SAT 96; BMI 26.6
--- NOTE | 2024-06-19 12:43 | ED.FEMALEGU ---
HPI - Female Genitourinary General Chief complaint: Urogenital-Female Stated complaint: UTI Time Seen by Provider: 06/19/24 16:51 Source: patient and RN notes reviewed Mode of arrival: ambulatory Limitations: no limitations History of Present Illness ED Provider: Brandi Delacruz PA-C HPI Narrative: This is a 23-year-old female who presents emergency department with complaints of dysuria, hematuria, urinary frequency and urgency. Patient also endorses some vaginal itching with intercourse. Denies any chance of STI. She denies any current changes in vaginal discharge. Last menses was last month, does report chance of . She has a history of urinary tract infections, symptoms feel similar. Denies any complaints or concerns at this time. MD elicited complaint: dysuria and UTI Onset (ago): day(s) Severity: moderate Consistency: constant Vaginal discharge: none Vaginal bleeding: none Urinary symptoms: Dysuria, Urgency, Frequency and Hematuria Exacerbating factors: urination Relieving factors: urination Associated symptoms: denies other symptoms Treatment prior to arrival: none Sexual activity: Yes Patient : No Possible : unsure if Related Data Previous Rx's ?Medication ?Instructions ?Recorded medroxyprogesterone 150 mg/mL 150 mg IM Q12W #1 mL 07/08/23 intramuscular suspension (Depo-Provera) cefuroxime axetil 250 mg tablet 250 mg PO BID 7 days #14 tabs 06/19/24 phenazopyridine 100 mg tablet 100 mg PO TID PRN pain 6 doses #6 06/19/24 (Pyridium) tabs Allergies Allergy/AdvReac Type Severity Reaction Status Date / Time shrimp Allergy Unknown SWELLING Verified 06/19/24 12:44 Review of Systems Review of Systems: Yes all other systems are reviewed and are negative Constitutional: Constitutional: Reports as per [facility] Past Medical History Medical History Renal calculus No known health problems Surgical History History of cosmetic plastic surgery Family History Family History Mother Epilepsy Maternal Grandmother Diabetes HTN (hypertension) Social History Social History (Reviewed 07/08/23 @ 15:21 by KEVYN Valdes Household Members: Family Housing: House Alcohol intake: never Patient Tobacco Use Status: Never used Tobacco e-Cigarette/Vaping Use: Never Used Trauma History: none Special rachel needs: No Agree to transfusion: Yes Do you have a plan to hurt others: No Plan Patient : No Current occupational status: employed 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 Physical Exam Vital Signs: Vital Signs: Last Vital Signs Temp 98.5 F 06/19/24 16:50 Pulse 77 06/19/24 16:50 Resp 20 06/19/24 16:50 BP 113/72 06/19/24 16:50 Pulse Ox 100 06/19/24 16:50 O2 Del Method Room Air 06/19/24 16:50 BMI result Body Mass Index 26.6 Const: General: cooperative, comfortable and no acute distress Orientation/consciousness: patient oriented x3 Limitations: no limitations HEENT: Head: Yes normal to inspection, Yes normocephalic and Yes atraumatic Ears: hearing grossly normal bilaterally General nose exam: Normal external nose present Face and sinus: Yes normal facial exam Mouth: Normal oral and palatal mucosa present, oropharynx normal and moist mucous membranes Throat: Yes posterior oropharynx normal Eyes: General: appearance normal, both eyes and all related structures Eyelids: Yes eyelids normal Conjunctivae: conjunctivae normal Sclerae: sclerae normal Pupils: Equal, round and reactive pupils present EOM: EOMs intact bilaterally Neck: Neck: Yes normal visual inspection, Yes full ROM and Yes no lymphadenopathy Lymphatic: no lymphadenopathy noted Chest: Chest palpation & inspection: normal inspection of the chest Resp: Effort & Inspection: normal respiratory effort and able to speak in complete sentences Auscultation: clear to auscultation bilaterally, no crackles, no rales, no rhonchi and no wheezes Cardio: Rate: regular rate Rhythm: regular rhythm Heart sounds: S1 normal heart sound present and S2 normal heart sound present GI: Other: Abdomen is soft, nontender, nondistended Inspection: Yes normal to inspection : Other: No CVA tenderness Skin: General skin exam: no rashes or lesions noted Trauma: no lacerations or abrasions Wounds: no wounds Neuro: General: patient oriented x3 and moves all extremities Cranial nerves: Yes Equal, round and reactive pupils present Extrem: General: Yes normal to inspection Right upper extremity: normal to inspection Left upper extremity: normal to inspection Right lower extremity: normal to inspection Left lower extremity: normal to inspection Course Course Course Narrative: This is an RME: Additional HPI, ROS, PE not included below will be deferred to primary provider. RME assessment and note performed by: Brandi Delacruz PA-C This is a [id number]-female who presents emergency department for evaluation of dysuria, urinary frequency, and hematuria. She does also endorse vaginal discharge. She is sexually active, menstrual period was last month. Does report possible chance of . Plan: Urinalysis, upreg, plus or minus pelvic examination Medical Decision Making Medical Decision Making MDM Narrative: This is a 23-year-old female who presents emergency department with complaints of urinary symptoms for the last 2 days. On arrival, vital signs within normal limits. She is speaking in full sentences under no acute distress. Patient with dysuria, hematuria, urinary frequency and urgency. Urine was collected revealing large blood, leuk esterases, rbc's, wbc's and trace bacteria consistent with UTI. She has no CVA tenderness. Abdomen is soft and nontender. She is not . Discussed findings with patient. Will discharge on course of cefuroxime. We will also discharge with Pyridium. Discussed strict return precautions. She understands and agrees with plan. Patient stable for discharge Patient does report some vaginal itching with intercourse, I offered that we can do a pelvic exam to cold-like swabs to rule out any vaginal infections however patient defers at this time and will follow-up with her OBGYN. I discussed with patient that we could be missing a illness however patient would like to be discharged with UTI antibiotics, and will follow-up outpatient. Given strict return precautions. Patient stable for discharge. Differential Diagnosis Differential Diagnoses: The differential diagnosis associated with the presentation includes Urinary tract infection, acute cystitis, STI-unlikely, pyelonephritis Lab Data [facility] Lab Attestation statement: I reviewed the patient's lab results. Urine consistent with UTI. Labs: Lab Results 06/19/24 Range/Units 13:18 Urine Color RED Urine Appearance Cloudy Urine pH 6.5 (5.0-9.0) Ur Specific [place] 1.020 (1.005-1.025) Urine Protein 100 (2+) H (Neg-Trace) mg/dL Urine Glucose (UA) Negative (Negative) mg/dL Urine Ketones Negative (Negative) mg/dL Urine Blood Large (3+) H (Negative) Urine Nitrite See Note (Negative) Ur Leukocyte Esterase Moderate (2+) H (Negative) Urine RBC >20 H (0-2) /HPF Urine WBC >50 H (0-5) /HPF Ur Squamous Epith Cells 0-2 (0-2) /HPF Urine Bacteria Trace (None Seen) Hyaline Casts 0-2 (0-2) /LPF Urine Test NEGATIVE (NEGATIVE) Discharge Plan Discharge Clinical Impression: UTI (urinary tract infection) Patient Disposition: Home, Self-Care Instructions: Urinary Tract Infection in Women (ED) Additional Instructions: You were seen in the emergency department due to urinary symptoms. Your urine is consistent with a urinary tract infection. Please drink prescribed antibiotic as directed. Finish the entire course even if your symptoms improve. Your urine will be sent out for further testing, we will call you if we need to change your antibiotic. Pyridium is an anesthetic for your bladder, this helps with the symptoms. Take as prescribed. Please be advised that this can cause your urine to be bright orange. Drink plenty of fluids get plenty of rest. If any new or worsening symptoms occur including but not limited to fevers, severe abdominal pain, chest pain, shortness of breath, please seek emergent care. Prescriptions: New cefuroxime axetil 250 mg tablet 250 mg PO BID 7 Days Qty: 14 0RF phenazopyridine [Pyridium] 100 mg tablet 100 mg PO TID PRN (Reason: pain) Qty: 6 0RF No Action medroxyprogesterone [Depo-Provera] 150 mg/mL suspension 150 mg IM Q12W Qty: 1 5RF Print Language: [place]
[2024-06-19 13:29] LABS: UPreg QC Valid YES; Urine Pregnancy NEGATIVE (NEGATIVE)
[2024-06-19 13:31] LABS: Appearance Urine Cloudy; Color Urine RED; Glucose Urine UA Negative (Negative); Leukocyte Esterase Urine Moderate (2+) (Negative); PH 6.5 (5.0-9.0); UMIC TRIGGER UACC YES; Urine Blood Large (3+) (Negative); Urine Ketones Negative (Negative); Urine Protein 100 (2+) mg/dL (Neg-Trace)
[2024-06-19 13:41] LABS: Bacteria Urine Trace (None Seen); Hyaline Casts Urine 0-2 /LPF (0-2); RBC Urine >20 /HPF (0-2); Squamous Epithelial Cell Urine 0-2 /HPF (0-2); UACC Culture Trigger YES; WBC Urine >50 /HPF (0-5)
[2024-06-19 16:50] VITALS: BP 113/72; PULSE 77; RESP 20; TEMP 36.9; O2SAT 100
[2024-06-19 17:03] VITALS: BP 113/72; PULSE 77; RESP 20; TEMP 36.9; O2SAT 100
== END 2024-06-19 17:06 | disposition home or self-care (01) ==
LOC: HO.ED 17:04
PROVIDERS: Physician Assistant Medical; Emergency Provider Emergency Medicine; PCP Internal Medicine
DX: N39.0 Urinary tract infection, site not specified (principal)
CPT/HCPCS: 81001; 81025; 87086; 99282; 99283

== ENCOUNTER 2024-06-26 14:14 | Outpatient (REF) | payer OTHER, SELFPAY ==
[2024-06-27 13:50] LABS: Bacterial Vaginosis PCR NEGATIVE (Negative); Candida Group PCR DETECTED (Not Detect); Candida glab krusei PCR NOT DETECTED (Not Detect); Trichomonas vaginalis PCR NOT DETECTED (Not Detect)
== END 2024-06-26 14:15 | disposition home or self-care (01) ==
LOC: HO.LAB 14:14
PROVIDERS: PCP Internal Medicine; Visit Provider Advanced Practice Midwife
DX: N90.89 Other specified noninflammatory disorders of vulva and perineum (principal); N89.8 Other specified noninflammatory disorders of vagina
CPT/HCPCS: 81515; 99212; 99459

== ENCOUNTER 2024-06-26 14:14 | Outpatient (AMB) | payer OTHER, SELFPAY ==
--- NOTE | 2024-06-26 14:17 | MHC.OFFVIS ---
Intake Visit Reasons: Vaginal itch Intake Note: pt c/o vaginal itching and discharge, recently treated for UTI Buildings Painter: Buildings Painter Present (Angeline) Allergies shrimp Allergy (Unknown, Verified 06/26/24 14:17) SWELLING Is last menstrual period known: Yes Last menstrual period: 05/22/24 HPI Comments Details: Patient is here today with external irritation, recent exposure to antibiotic therapy. She is interested in a future and not using contraception right now. 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 Female Reproductive History Menstrual Age of Menarche: 13 Date of last menstrual period: 05/22/24 Review of Systems Const All systems reviewed & are unremarkable except as noted in HPI and below Physical Exam Const General: cooperative, healthy appearing and no acute distress Orientation/consciousness: patient oriented x3 GI Inspection: Yes normal to inspection Palpation (GI): Soft to palpation and Other GI palpation findings present (Nontender) Rectal Exam - Female: visual inspection normal Other: External erythema General: Yes bladder normal to palpation External Female Exam: normal appearance of the urethra Speculum Exam - Vagina: normal palpation and abnormal vaginal discharge (White clumpy discharge) Speculum Exam - Cervix: normal appearance of the cervix and normal palpation Bimanual exam- vagina & uterus: normal bimanual exam, normal palpation, uterine size normal, bladder normal to palpation, normal palpation, uterine shape normal and non-tender Bimanual Exam- Adnexa, other: normal adnexae Neuro General: patient oriented x3 Assessment & Plan Assessment & Plan (1) Vulvar irritation: Code(s): N90.89 - Other specified noninflammatory disorders of vulva and perineum Plan: Symptoms are consistent with a yeast infection plan to treat with anti-inflammatory oral medication. Counseled on the use of probiotics. Instructions: Clean with warm water, no soaps, scented products. Wear loose, cotton underclothes, avoid tight outer clothing. Air when possible. No coitus until well healed. Complete all medications as prescribed. Await final pending results for any changes in the plan of care. Call the office if there is no improvement in 24-48hrs., or if worsening symptoms. Start vitamins, follow up healthy well-balanced diet, maintain regular daily exercise, healthy lifestyle avoidance of any harmful substances. Annual exam scheduled 08/19/2024. The patient expressed understanding and agreement with the plan of care. All of her questions and concerns were addressed to the best of my ability. This note is constructed using voice recognition software. While every effort has been made to ensure accuracy, cylinder valve repairer errors may have been included. Orders: Orders Bacterial Vaginosis Panel Today N89.8 - Other specified noninflammatory disorders of vagina Medications: New clotrimazole-betamethasone 1-0.05 % apply externally a thin coat to the area 1 appl topical BID 7 days 45 grams 0RF itching PNV,calcium [id number] acid 27 mg iron- 1 mg ( Vitamins Plus Low Iron) 1 tab PO DAILY 90 tabs 4RF terconazole 0.8% 1 appful vaginal BEDTIME 3 days 20 grams 0RF Coding Level of Care Code Est Pt Level 3 (48531) Diagnoses Vulvar irritation N90.89
== END 2024-06-26 14:51 | disposition home or self-care (01) ==
PROVIDERS: PCP Internal Medicine; Visit Provider Advanced Practice Midwife
DX: N90.89 Other specified noninflammatory disorders of vulva and perineum (principal)
CPT/HCPCS: 99213